=== PATIENT | male | born 1935 | race Caucasian/White ===

== ENCOUNTER 2016-10-09 08:29 | Inpatient (IN) | payer OTHER, MEDICARE ==
[~2016-10-09] VITALS: Ht 154.9 cm; Wt 79.4 kg
--- NOTE | 2016-10-09 08:33 | ED UPPER/LOWER EXTREMITY COMPL ---
History of Present Illness General Chief Complaint: Lower Extremity Injury Stated Complaint: BIBA LEFT LEG PAIN Source: patient, family Exam Limitations: no limitations Vital Signs & Intake/Output Vital Signs & Intake/Output Vital Signs Date Time Temp Pulse Resp B/P B/P Pulse O2 O2 Flow FiO2 Mean Ox Delivery Rate 10/10 0617 98.2 97 20 130/78 94 Room Air 10/09 2202 98.5 89 20 132/64 100 Room Air 10/09 1430 98.3 80 20 152/96 98 10/09 1230 97.8 80 20 140/80 96 10/09 1149 90 20 148/81 98 Room Air ED Intake and Output 10/10 0000 10/09 1200 Intake Total 420 0 Output Total 900 Balance -480 0 Intake, Oral 420 0 Number 0 Bowel Movements Output, Urine 900 Patient 175 lb 175 lb Weight Weight Reported by Patient Reported by Patient Measurement Method Allergies Coded Allergies: MDX - Latex (LATEX) (ITCHY AND HIVES 08/12/13) Reconcile Medications Calcium Carb/Vitamin D3/Vit K1 (Calcium + D Soft Chewable Tab) 500 MG CALCIUM-1, 000 UNIT-40 MCG TAB.CHEW (Unknown Dose) PO DAILY VITAMIN SUPPORT (Reported) Cephalexin 250 MG CAPSULE 1 CAP PO DAILY UTI PROPHYLACTIC (Reported) Dipyridamole W/ Aspirin (Aggrenox 25 MG-200 MG Capsule) 25 MG-200 MG CPMP.12HR 1 CAP PO BID BLOOD THINNER (Reported) Multiple Vitamin (Multivitamins) 1 EACH TABLET 1 TAB PO DAILY VITAMIN SUPPORT (Reported) Simvastatin (Simvastatin*) 40 MG TABLET 1 TAB PO QPM HEART HEALTH (Reported) Triage Nurses Notes Reviewed? yes Onset: Abrupt Duration: day(s): (1) Timing: multiple episodes today Severity: moderate Pain/Injury Location: Left: Leg, Knee. Method of Injury: fall Modifying Factors: Worsens With: movement. Associated Symptoms: swelling HPI: This is a very kailey 78-year-old gentleman from home who arrives by ambulance for chief complaint of left knee pain, left leg swelling and weakness. He slid off the toilet yesterday while attempting to get up and landed on the ground. He was sitting there for half an hour and waited for family to come pick him up. They were able to lift him up and put him back in the wheelchair. He has a history of Guillain-Monroe in 1963. 4 years ago he fell down and had a femur fracture. Since that time he has been relatively ultrasound. He is able to hoist himself between the wheelchair and a scooter at home. Today as well he was unable to get himself off the toilet and needed a lift. He complains of bilateral leg swelling. Left leg is more swollen than yesterday according to the niece at bedside. He denies any pain. Historically the patient does not feel pain even when he sustained his femur fracture. He lives at home with his 80-year-old who takes care of him. She was unable to help him up yesterday or today. Past History Travel History Traveled to [place] past 21 day No Medical History Any Pertinent Medical History? see below for history Neurological: GBS Musculoskeletal: fracture History of MRSA: No History of VRE: No History of CDIFF: No Pneumonia Vaccine: 01/12/04 Surgical History Surgical History: LEFT FEMUR FREDERICK Psychosocial History Who do you live with Spouse Services at Home Nursing What is your primary language Malagasy Family History Hx Contributory? No Review of Systems Review of Systems Constitutional: Reports: malaise. Denies: chills, fever. EENTM: Reports: no symptoms. Respiratory: Denies: cough, short of breath. Cardiovascular: Reports: peripheral edema. Denies: chest pain, palpitations. Gastrointestinal/Abdominal: Reports: no symptoms. Genitourinary: Reports: no symptoms. Musculoskeletal: Reports: joint pain, joint swelling. Skin: Reports: no symptoms. Neurological/Psychological: Reports: no symptoms. Hematologic/Endocrine: Denies: bruising, bleeding, polyuria, polydipsia. Immunological: Denies: splenectomy. All Other Systems: Reviewed and Negative Physical Exam Physical Exam General Appearance: well developed/nourished, mild distress Head: atraumatic Eyes: Bilateral: PERRL, EOMI. Ears, Nose, Throat: normal pharynx, normal ENT inspection, hearing grossly normal Neck: normal inspection, supple Cardiovascular/Respiratory: regular rate/rhythm Peripheral Pulses: 2+ radial (R), 2+ radial (L) Gastrointestinal: SOFT NONTEN Back: normal inspection Leg Left: swelling, tenderness Leg Right: normal range of motion, swelling Hip Left: normal range of motion, swelling Hip Right: normal range of motion, swelling Knee Left: swelling, tenderness, limited range of motion Knee Right: normal range of motion, swelling Foot Left: swelling Foot Right: swelling Neurologic/Tendon: normal sensation Skin: intact, normal color, warm/dry Lymphatic: no anterior cervical manuel Diagram Legs Front/Back 1) TENDER, SWOLLEN Progress Differential Diagnosis: dislocation, fracture Plan of Care: Orders Procedure Date/time Status PT Evaluate & Treat 10/10 0600 Active CBC WITHOUT DIFFERENTIAL 10/10 06 Complete Therapeutic Exercise 10/10 UNK Complete PT EVAL LOW COMPLEX 20 MIN 10/10 UNK Complete Nursing Misc 10/10 UNK Active PHARMACY COMMUNICATION FORM 10/10 UNK Active MISSING MEDICATION FORM 10/10 UNK Active Heart Healthy Diet 10/09 L Active Pathway - chart 10/09 1437 Active House Staff 10/09 1437 Active Turn and Reposition 10/09 1314 Active Skin Integrity Protocol 10/09 1314 Active Vital Signs 10/09 1225 Active Teach/Educate 10/09 1225 Active Pain Treatment and Response 10/09 1225 Active Nutritional Intake, Monitor 10/09 1225 Active Isolation 10/09 1225 Active Intake & Output 10/09 1225 Active Patient Care Conference 10/09 1225 Active Activity/Ambulation 10/09 1225 Complete Change service to 10/09 1155 Active Patient Data 10/09 1136 Active ED Holding Orders 10/09 1055 Active Admit to inpatient 10/09 1055 Active Vital Signs 10/09 1055 Active Code Status 10/09 1055 Active EKG 10/09 1048 Active Durable Medical Equipment 10/09 1026 Active Intake & Output 10/09 0935 Active Straight Cath 10/09 UNK Active Current Medications Sig/Yeimi Start time Last Medication Dose Stop Time Status Admin Cephalexin 250 MG DAILY 10/10 1000 AC (Keflex) 10/11 0959 Multivitamins 1 TAB DAILY 10/10 1000 AC 10/10 Therapeutic 0959 (Theragran-M Vitamins Tabs) Calcium/Vitamin D 1 TAB BID 10/09 2200 AC 10/10 (Caltrate 600 + D) 0959 Dipyridamole/Aspirin 1 CAP BID 10/09 2200 AC 10/10 (Aggrenox) 0959 Atorvastatin Calcium 20 MG 1700 10/09 1700 AC 10/09 (Lipitor) 1627 Acetaminophen 650 MG Q6P PRN 10/09 1445 AC (Tylenol) Heparin Sodium 5,000 UNIT Q8 10/09 1434 AC 10/10 (Porcine) 0543 Morphine Sulfate 4 MG Q4P PRN 10/09 1430 AC (Morphine) Laboratory Tests 10/10/16 0625: CBC w Diff NO MAN DIFF REQ, RBC 3.98 L, MCV 97.6 H, MCH 32.6 H, RDW 14.1, MPV 9.2, Gran % 73.1, Lymphocytes % 14.2 L, Monocytes % 10.8 H, Eosinophils % 1.6, Basophils % 0.3, Absolute Granulocytes 6.0, Absolute Lymphocytes 1.2, Absolute Monocytes 0.9 H, Absolute Eosinophils 0.1, Absolute Basophils 0, PUBS MCHC 33.4 10/09/16 1545: Urine Color YEL, Urine Clarity CLEAR, Urine pH 7.0, Ur Specific Hubbell 1.010, Urine Protein NEG, Urine Ketones NEG, Urine Nitrite NEG, Urine Bilirubin NEG, Urine Urobilinogen 0.2, Ur Leukocyte Esterase TRACE H, Ur Microscopic SEDIMENT EXAMINED, Urine RBC RARE, Urine WBC 1-3 H, Urine Bacteria RARE H, Urine Hemoglobin TRACE-LYSED H, Urine Glucose 250 H 10/09/16 1037: Anion Gap 10, Estimated GFR > 60, BUN/Creatinine Ratio 19.0, Glucose 126 H, Calcium 9.5, Total Bilirubin 1.3, AST 24, ALT 38, Alkaline Phosphatase 83, Total Protein 6.1 L, Albumin 3.6, Globulin 2.5, Albumin/Globulin Ratio 1.4, CBC w Diff NO MAN DIFF REQ, RBC 4.03 L, MCV 96.7 H, MCH 32.5 H, RDW 13.7, MPV 8.6, Gran % 85.7 H, Lymphocytes % 6.1 L, Monocytes % 7.7, Eosinophils % 0.3, Basophils % 0.2, Absolute Granulocytes 8.6 H, Absolute Lymphocytes 0.6 L, Absolute Monocytes 0.8 H, Absolute Eosinophils 0, Absolute Basophils 0, PUBS MCHC 33.7 10:[address] SHAHRIAR MACHADO (WINDER) PAGED PER FAMILY REQUEST. XRAY SHOWS TIBIA/FIBULA INTRAARTICULAR FRACTURE. D/W MADDIE FROM HIS OFFICE - REFERRED TO PARTNER. DR LEXIS LEACH (PARTNER OF DR BESS FROM [facility]) -[phone] ( [facility]) D/W RICHO - KNEE IMMOBILIZER X 4-6 WEEKS, CAN SEE IN OFFICE. D/W PARMINDER FROM CASE MANAGEMENT, PATIENT REQUIRES FULL ADMISSION HE IS UNABLE TO BEAR WEIGHT AND USES A WALKER WITH GREAT DIFFICULTY AT BASELINE. HE WILL REQUIRE REHAB. ([place]) Diagnostic Imaging: Viewed by Me: Radiology Read, Ultrasound. Discussed w/RAD: Radiology Read, Ultrasound. Radiology Impression: PATIENT: TOMÁS MEIER PRESENT AGE: 81 PATIENT ACCOUNT NO: [id number] : 33 LOCATION: ER ORDERING PHYSICIAN: PAPA BLANCHARD MD SERVICE DATE: 10/09/16 EXAM TYPE: RAD - XRY -AP PELVIS EXAMINATION: XR PELVIS CLINICAL INFORMATION: Left leg pain after a fall COMPARISON: None TECHNIQUE: AP view of the pelvis. FINDINGS: Moderate right and mild left hip joint space narrowing. Partial visualization of a left femoral intramedullary nail with obliquely oriented screws traversing the left femoral neck. There is heterotopic ossification proximal to the greater trochanter. No acute fracture or dislocation. IMPRESSION: No acute fracture or dislocation. DICTATED BY: MERCY MO MD DATE/TIME DICTATED:10/09/16926 FLAME ANNEALING MACHINE SETTER:DANNY DATE/TIME TRANSCRIBED:10/09/16926 CONFIDENTIAL, DO NOT COPY WITHOUT APPROPRIATE AUTHORIZATION. <Electronically signed in Other Vendor System> SIGNED BY: MERCY MO MD 10/09/16930, PATIENT: TOMÁS MEIER PRESENT AGE: 81 PATIENT ACCOUNT NO: [id number] : 33 LOCATION: ER ORDERING PHYSICIAN: PAPA BLANCHARD MD SERVICE DATE: 10/09/16 EXAM TYPE: RAD - XRY-FEMUR, LEFT 2 VIEWS; XRY-KNEE COMPLETE LEFT EXAMINATION: XR FEMUR, LEFT XR KNEE, LEFT CLINICAL INFORMATION: Fall COMPARISON: None TECHNIQUE: AP and lateral views of the left femur were obtained. 4 views of the left knee. FINDINGS: There is an intramedullary nail traversing a partially healed fracture of the midfemoral diaphysis with callus formation. The fracture line remains visible. There is diffuse osteopenia. There is a minimally displaced, complex fracture of the proximal tibia with a fracture line extending between the tibial spines, and oblique, longitudinal fracture lines extending beyond the metadiaphysis. There is also a minimally displaced fracture of the fibular head/neck junction. Small joint effusion. IMPRESSION: Slightly complex and minimally displaced fractures of the left proximal tibia and fibula. The fractures are intra-articular. There is an incompletely healed femoral diaphysis fracture with no acute femur fracture demonstrated. DICTATED BY: MERCY MO MD DATE/TIME DICTATED:10/09/16927 FLAME ANNEALING MACHINE SETTER: DANNY DATE/TIME TRANSCRIBED:10/09/16927 CONFIDENTIAL, DO NOT COPY WITHOUT APPROPRIATE AUTHORIZATION. <Electronically signed in Other Vendor System> SIGNED BY: MERCY MO MD 10/09/1638 Initial ED EKG: RBBB Prior EKG: unchanged Departure Departure Time of Disposition: 1053 Disposition: STILL A PATIENT Condition: Stable Clinical Impression Primary Impression: Tibia fracture Secondary Impressions: Fibula fracture Referrals: TYLOR VEGA MD (PCP/Family) Departure Forms: Customer Survey General Discharge Information Admission Note Spoke With: NAPOLEON LOU MD Documentation of Exam: Documentation of any treatments & extenuating circumstances including Concerns Regarding Discharge (functional status, medication knowledge or non-compliance, living conditions, etc.) that warrant an admission rather than observation: [PT ASSESSMENT, KNEE IMMOBILIZER, PAIN MANAGEMENT, OT CONSULT, PATIENT UNABLE TO BEAR WEIGHT SECONDARY TO FRACTURE AND HAS A VERY POOR FUNCTIONAL BASELINE STATUS , WILL REQUIRE SHORT TERM REHAB] Procedures Splinting Location: LEFT KNEE IMMOBILIZER PLACED Pre-Made Type: knee imobilizer Splint Applied By: splint applied by other ED Attending Observation Initial Observation Note: I have seen and personally examined TOMÁS MEIER on 10/09/16 at 1009. I agree with the current emergency department documentation. The disposition (admission or discharge) is uncertain at this time, he needs a period of observation for the following reason(s): The ED Nurse caring for this patient has been personally informed as to what the patient is being observed for.
--- NOTE | 2016-10-09 09:31 | RADIOLOGY REPORT ---
EXAMINATION: XR PELVIS CLINICAL INFORMATION: Left leg pain after a fall COMPARISON: None TECHNIQUE: AP view of the pelvis. FINDINGS: Moderate right and mild left hip joint space narrowing. Partial visualization of a left femoral intramedullary nail with obliquely oriented screws traversing the left femoral neck. There is heterotopic ossification proximal to the greater trochanter. No acute fracture or dislocation. IMPRESSION: No acute fracture or dislocation.
--- NOTE | 2016-10-09 09:35 | RADIOLOGY REPORT ---
EXAMINATION: XR ANKLE, LEFT CLINICAL INFORMATION: Fall with pain COMPARISON: None TECHNIQUE: AP and lateral views of the left ankle. FINDINGS: Diffuse osteopenia. No acute fracture or dislocation is demonstrated. Lateral soft tissue swelling. IMPRESSION: Osteopenia with no fracture demonstrated. Alignment appears maintained.
--- NOTE | 2016-10-09 09:38 | RADIOLOGY REPORT ---
EXAMINATION: XR FEMUR, LEFT XR KNEE, LEFT CLINICAL INFORMATION: Fall COMPARISON: None TECHNIQUE: AP and lateral views of the left femur were obtained. 4 views of the left knee. FINDINGS: There is an intramedullary nail traversing a partially healed fracture of the midfemoral diaphysis with callus formation. The fracture line remains visible. There is diffuse osteopenia. There is a minimally displaced, complex fracture of the proximal tibia with a fracture line extending between the tibial spines, and oblique, longitudinal fracture lines extending beyond the metadiaphysis. There is also a minimally displaced fracture of the fibular head/neck junction. Small joint effusion. IMPRESSION: Slightly complex and minimally displaced fractures of the left proximal tibia and fibula. The fractures are intra-articular. There is an incompletely healed femoral diaphysis fracture with no acute femur fracture demonstrated.
--- NOTE | 2016-10-09 10:07 | ULTRASOUND REPORT ---
EXAMINATION: US TRIPLEX OF LOWER EXTREMITIES, BILATERAL CLINICAL INFORMATION: Bilateral lower extremity swelling. COMPARISON: None TECHNIQUE: Color-flow triplex imaging with spectral analysis and compression Doppler were performed on the lower extremities. FINDINGS: Respiratory variation, normal compression and augmented flow are noted throughout the lower extremities. The visualized common femoral vein, superficial femoral vein, profunda femoral vein, popliteal vein and midcalf peroneal and posterior tibial venous segments show no evidence of deep venous thrombosis. There is no Rowan's cyst. IMPRESSION: Normal triplex scan without evidence of deep venous thrombosis involving the lower extremities.
[2016-10-09 10:44] LABS: ABSOLUTE BASOPHIL COUNT 0 /CUMM (0.0-0.2); ABSOLUTE EOSINOPHIL COUNT 0 /CUMM (0.0-0.7); ABSOLUTE GRANULOCYTE CT 8.6 /CUMM (1.4-6.5); ABSOLUTE LYMPH COUNT 0.6 /CUMM (1.2-3.4); ABSOLUTE MONOCYTE COUNT 0.8 /CUMM (0.10-0.60); BASOPHIL % 0.2 % (0.0-2.0); EOSINOPHIL % 0.3 % (0-5); HEMATOCRIT 38.9 % (42-52); MEAN CORPUSCULAR HGB 32.5 PG (27.0-31.0); MEAN CORPUSCULAR HGB CONC 33.7 G/DL (33.0-37.0); MEAN CORPUSCULAR VOLUME 96.7 FL (80.0-94.0); MEAN PLATELET VOLUME 8.6 FL (7.4-10.4); PLATELET COUNT 195 /CUMM (130-400); RBC DISTRIBUTION WIDTH 13.7 % (11.5-14.5); RED BLOOD CELL CT 4.03 /CUMM (4.70-6.10); WHITE BLOOD CELL COUNT 10.1 /CUMM (4.8-10.8)
[2016-10-09 10:58] LABS: GRANULOCYTE % 85.7 % (42.2-75.2)
--- NOTE | 2016-10-09 11:22 | History & Physical ---
CRISTINA MARIE,[facility] 10/09/16 1121: General Information and HPI MD Statement: I have seen and personally examined TOMÁS MEIER and documented this H&P. The patient is a 81 year old M who presented with a patient stated chief complaint of [left knee pain]. 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 The patient lives with his 80-year old at home. At baseline he uses a motorized scooter or wheelchair for ambulation due to residual effects of GBS, and he can only take a few steps with a walker at best. Yesterday evening around 8 pm, he slipped and fell in his bathroom as he was trying to transfer from the comode to his scooter. He slipped and fell on his backside twisting his knee and landing on his left foot. He denied chest pain, shortness of breath, lightheadedness or palpitations prior to this episode. He stated that he felt no pain in his knee but did note some swelling/tight feeling there. He was unable to get up on his own, and was on the floor for about 30 minutes and then his found him and lifted him up with the help of a friend. On awakening this morning, he noted some slight pain in the knee -about 2/10 intensity. His knee also appeared more swollen. He the noticed that he could not get up from the comode this morning and when his could not help him alone today, shecalled the EMS who brought him to the ER for evaluation. Of note, the patient has had a left femur fracture about 4 years ago and also felt minimal pain at that time. Allergies/Medications Allergies: Coded Allergies: MDX - Latex (LATEX) (ITCHY AND HIVES 08/12/13) Home Med list Calcium Carb/Vitamin D3/Vit K1 (Calcium + D Soft Chewable Tab) 500 MG CALCIUM-1, 000 UNIT-40 MCG TAB.CHEW (Unknown Dose) PO DAILY VITAMIN SUPPORT (Reported) Cephalexin 250 MG CAPSULE 1 CAP PO DAILY UTI PROPHYLACTIC (Reported) Dipyridamole W/ Aspirin (Aggrenox 25 MG-200 MG Capsule) 25 MG-200 MG CPMP.12HR 1 CAP PO BID BLOOD THINNER (Reported) Multiple Vitamin (Multivitamins) 1 EACH TABLET 1 TAB PO DAILY VITAMIN SUPPORT (Reported) Simvastatin (Simvastatin*) 40 MG TABLET 1 TAB PO QPM HEART HEALTH (Reported) Past History Travel History Traveled to [place] past 21 day No Medical History Neurological: GBS Cardiovascular: hyperlipidemia, myocardial infarction Musculoskeletal: fracture History of MRSA: No History of VRE: No History of CDIFF: No Surgical History Surgical History: LEFT FEMUR FREDERICK Past Family/Social History Family History Relations & Conditions if any FATHER FH: CHF (congestive heart failure) Psychosocial History Where do you live? Home Who Do You Live With? spouse Services at Home: Nursing Smoking Status: Former Smoker ETOH Use: occasional use Review of Systems Review of Systems Constitutional: Reports: weakness. Denies: chills, fever, malaise. EENTM: Denies: blurred vision, nasal congestion, throat pain. Cardiovascular: Denies: chest pain, palpitations, syncope. Respiratory: Denies: cough, short of breath, wheezing. GI: Denies: abdominal pain, diarrhea, nausea, vomiting. Genitourinary: Denies: dysuria. Exam & Diagnostic Data Last 24 Hrs of Vital Signs/I&O Vital Signs Date Time Temp Pulse Resp B/P B/P Pulse O2 O2 Flow FiO2 Mean Ox Delivery Rate 10/09 1430 98.3 80 20 152/96 98 10/09 1230 97.8 80 20 140/80 96 10/09 1149 90 20 148/81 98 Room Air 10/09 0936 Room Air Room Air 10/09 0835 96.9 89 15 161/74 98 Room Air Room Air Intake & Output 10/09 1600 10/09 0800 10/09 0000 Intake Total 0 Output Total Balance 0 Intake, Oral 0 Patient 175 lb Weight Weight Reported by Patient Measurement Method Physical Exam General Appearance Alert, Oriented X3, Cooperative, No Acute Distress Skin No Rashes Skin Temp/Moisture Exam: Warm/Dry Sepsis Skin Exam (color): Normal for Ethnicity HEENT Atraumatic, PERRLA, EOMI, Mucous Membr. moist/pink Neck Supple, No JVD, No thryomegaly, +2 Carotid Pulse wo Bruit Lymphatic Cervical nl Cardiovascular Regular Rate, Normal S1, Normal S2, No Murmurs Lungs Clear to Auscultation, Normal Air Movement Abdomen Normal Bowel Sounds, Soft, No Tenderness, No Hepatospenomegaly, No Masses Neurological Normal Speech, Reduced tone in lower limbs bilaterally, Strength 2/ 5 in both lower limbs Extremities No Edema, Normal Pulses Vascular Normal Pulses, Pulses Symmetrical Last 24 Hrs of Labs/Anthony: Laboratory Tests 10/09/16 1037: Anion Gap 10, Estimated GFR > 60, BUN/Creatinine Ratio 19.0, Glucose 126 H, Calcium 9.5, Total Bilirubin 1.3, AST 24, ALT 38, Alkaline Phosphatase 83, Total Protein 6.1 L, Albumin 3.6, Globulin 2.5, Albumin/Globulin Ratio 1.4, CBC w Diff NO MAN DIFF REQ, RBC 4.03 L, MCV 96.7 H, MCH 32.5 H, RDW 13.7, MPV 8.6, Gran % 85.7 H, Lymphocytes % 6.1 L, Monocytes % 7.7, Eosinophils % 0.3, Basophils % 0.2, Absolute Granulocytes 8.6 H, Absolute Lymphocytes 0.6 L, Absolute Monocytes 0.8 H, Absolute Eosinophils 0, Absolute Basophils 0, PUBS MCHC 33.7 Diagnostic Data Other Results X-ray left knee IMPRESSION: Slightly complex and minimally displaced fractures of the left proximal tibia and fibula. The fractures are intra-articular. There is an incompletely healed femoral diaphysis fracture with no acute femur fracture demonstrated. 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 The patient lives with his 80-year old at home. At baseline he uses a motorized scooter or wheelchair for ambulation due to residual effects of GBS, and he can only take a few steps with a walker at best. He presents after a mechanical fall and resultant left leg weakness and swelling. Doppler ultrasound showed no DVT but left knee X-rays showed minimally displaced intraarticular proximal left tibia and fibular fractures. He is planned for conservative management by orthopedics. Problem list 1. Left intraarticular proximal Tibilo-fibular fracture 2. 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 Coronary Artery Disease 4. History of recurrent UTIs on prophylactic cephalexin and on intermittent self catheterization Plan -Admit to [facility] -Orthopedic surgery consultation -Po tylenol 650 mg Q6 hrs prn for mild to moderate pain -IV morphine 4 mg Q 6 hrs PRN for severe pain -Physical therapy consultation for discharge recommendations -Patient will likely need short term rehab placement -Continue home medications cephalexin, aggrenox -DVT ppx SC heparin 5000 units Q 8 hrs -Patient is full code As Ranked By This Provider Problem List: 1. Tibia fracture 2. Fibula fracture Core Measures/Miscellaneous Acute Coronary Syndrome ACS Diagnosis: No Cerebrovascular Accident CVA/TIA Diagnosis: No Congestive Heart Failure CHF Diagnosis: No Venous Thromboembolism VTE Risk Factors: Acute medical illness, Age > 40 [facility] d/t: No contraindications No VTE Pharm Prophylaxis d/t: No contraindications VTE Diagnosis: No VTE Type: NONE VTE Confirmed by (Test): NONE Severe Sepsis Severe Sepsis Present: No Septic Shock Septic Shock Present: No Miscellaneous Documentation Attending Case Discussed With: RAQUEL COOPER MD Primary Care Physician: TYLOR VEGA MD Patient sees these Specialists None Level of Patient Care: General Medicine RAQUEL COOPER MD 10/09/16 1721: Attending MD Review Statement Attending Statement Attending MD Statement: examined this patient, discuss w/resident/PA/INFORMATION TECHNOLOGY DIRECTOR, agreed w/resident/PA/INFORMATION TECHNOLOGY DIRECTOR, reviewed EMR data (avail) Attending Assessment/Plan: Agree with residnet assessment and plan. Patient has no pain at this time. Will follyolanda orthopedic and physical therapy recommendations. Continue current medications. DVT PPx
[2016-10-09] MEDS ORDERED: CEPHALEXIN250 M2 PO (12:13)
[2016-10-09] MEDS ORDERED: SIMVASTATIN40 M1 PO (12:13)
[2016-10-09] MEDS ORDERED: AGGRENOX 25 MG1 EACH PO (12:13)
[2016-10-09 12:30] VITALS: BP 140/80
[2016-10-09] MEDS ORDERED: MULTIVITAMINS1 EAC9 PO (12:35)
[2016-10-09] MEDS ORDERED: CALCIUM + D SO1 EACH PO (12:37)
[2016-10-09 14:30] VITALS: BP 152/96
--- NOTE | 2016-10-09 17:21 | Admission Certification ---
Admission Certification Certification Statement - As attending physician, I certify that at the time of - admission, based on clinical presentation, severity of - symptoms, need for further diagnostic testing and - therapeutic interventions, and risk of adverse outcomes - without in-hospital treatment, in my clinical assessment, - this patient requires an acute hospital stay for a minimum - of two nights or longer. I have also considered psychsocial - factors such as support system, advanced age, financial - issues, cognitive issues, and failed out-patient treatments, - past re-admission history, safety of patient, and lack of - compliance as applicable. Specific rationale supporting this admission is: Fall with multiple tibial fractures requiring immobilization
[2016-10-09 22:02] VITALS: BP 132/64
[2016-10-10 06:17] VITALS: BP 130/78
--- NOTE | 2016-10-10 07:27 | PN- Housestaff ---
CRISTINA MARIE,[facility] 10/10/16 0726: Subjective Follow-up For: -Fall with left tibilo-fibular fracture Complaints: no complaints Subjective: Patient has no complaints this morning. He has no pain in his leg (Patient does not feel pain in his lower limbs due to Guillaine [place] sydrome). He is pleasant today and wants to eat a regular diet. Review of Systems Constitutional: Denies: chills, fever. EENTM: Denies: blurred vision, nasal congestion. Cardiovascular: Denies: chest pain, palpitations, syncope. Respiratory: Denies: cough, short of breath, wheezing. Gastrointestinal: Denies: abdominal pain, bloating, constipation. Genitourinary: Denies: dysuria, pain. Objective Last 24 Hrs of Vital Signs/I&O Vital Signs Date Time Temp Pulse Resp B/P B/P Pulse O2 O2 Flow FiO2 Mean Ox Delivery Rate 10/10 0617 98.2 97 20 130/78 94 Room Air 10/09 2202 98.5 89 20 132/64 100 Room Air 10/09 1430 98.3 80 20 152/96 98 10/09 1230 97.8 80 20 140/80 96 10/09 1149 90 20 148/81 98 Room Air Intake & Output 10/10 1600 10/10 0800 10/10 0000 Intake Total 180 180 Output Total 700 900 Balance -520 -720 Intake, Oral 180 180 Number 0 Bowel Movements Output, Urine 700 900 Physical Exam General Appearance: Alert, Oriented X3, Cooperative, No Acute Distress, Mild Distress Skin: No Rashes Skin Temp/Moisture Exam: Warm/Dry Sepsis Skin Exam (color): Normal for Ethnicity HEENT: Atraumatic, PERRLA, EOMI, Mucous Membr. moist/pink Neck: Supple, No JVD, No thryomegaly, +2 Carotid Pulse wo Bruit Lymphatic: Cervical nl Cardiovascular: Regular Rate, Normal S1, Normal S2, No Murmurs Lungs: Clear to Auscultation, Normal Air Movement Abdomen: Normal Bowel Sounds, Soft, No Tenderness, No Hepatospenomegaly, No Masses Neurological: Normal Speech, Reduced tone and power grade 1/5 in both lower limbs Extremities: Normal Pulses, Left knee/amrquez in straps, No edema Current Medications: Current Medications Sig/Yeimi Start time Last Medication Dose Route Stop Time Status Admin Acetaminophen 650 MG Q6P PRN 10/09 1445 AC PO Atorvastatin Calcium 20 MG 1700 10/09 1700 AC 10/09 PO 1627 Calcium/Vitamin D 1 TAB BID 10/09 2200 AC 10/10 PO 0959 Cephalexin 250 MG DAILY 10/10 1000 AC PO 10/11 0959 Dipyridamole/Aspirin 1 CAP BID 10/09 2200 AC 10/10 PO 0959 Heparin Sodium 5,000 UNIT Q8 10/09 1434 AC 10/10 (Porcine) SC 0543 Morphine Sulfate 4 MG Q4P PRN 10/09 1430 AC IV Multivitamins 1 TAB DAILY 10/10 1000 AC 10/10 Therapeutic PO 0959 Last 24 Hrs of Lab/Anthony Results Last 24 Hrs of Labs/Mics: Laboratory Tests 10/10/16 0625: CBC w Diff NO MAN DIFF REQ, RBC 3.98 L, MCV 97.6 H, MCH 32.6 H, RDW 14.1, MPV 9.2, Gran % 73.1, Lymphocytes % 14.2 L, Monocytes % 10.8 H, Eosinophils % 1.6, Basophils % 0.3, Absolute Granulocytes 6.0, Absolute Lymphocytes 1.2, Absolute Monocytes 0.9 H, Absolute Eosinophils 0.1, Absolute Basophils 0, PUBS MCHC 33.4 10/09/16 1545: Urine Color YEL, Urine Clarity CLEAR, Urine pH 7.0, Ur Specific [place] 1.010, Urine Protein NEG, Urine Ketones NEG, Urine Nitrite NEG, Urine Bilirubin NEG, Urine Urobilinogen 0.2, Ur Leukocyte Esterase TRACE H, Ur Microscopic SEDIMENT EXAMINED, Urine RBC RARE, Urine WBC 1-3 H, Urine Bacteria RARE H, Urine Hemoglobin TRACE-LYSED H, Urine Glucose 250 H Assessment/Plan Assessment: Patient is an 81-year-old man with 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 The patient lives with his 80-year old at home. At baseline he uses a motorized scooter or wheelchair for ambulation due to residual effects of GBS, and he can only take a few steps with a walker at best. He presents after a mechanical fall and resultant left leg weakness and swelling. Doppler ultrasound showed no DVT but left knee X-rays showed minimally displaced intraarticular proximal left tibia and fibular fractures. He is planned for conservative management by orthopedics. Problem list 1. Left intraarticular proximal Tibilo-fibular fracture 2. 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 Coronary Artery Disease 4. History of recurrent UTIs on prophylactic cephalexin and on intermittent self catheterization Plan -Continue conservative management -Awaiting orthopedic surgery review -Po tylenol 650 mg Q6 hrs prn for mild to moderate pain -IV morphine 4 mg Q 6 hrs PRN for severe pain -Physical therapy consultation for discharge recommendations -Patient will likely need short term rehab placement -Continue home medications cephalexin, aggrenox -DVT ppx SC heparin 5000 units Q 8 hrs -Regular diet as per patient request -Patient is full code Problem List: 1. Tibia fracture 2. Fibula fracture Pain Ratin Pain Location: None Pain Goal: Remain pain free Pain Plan: Tylenol as needed Tomorrow's Labs & Rationales: Not needed RAQUEL COOPER MD 10/10/16 1004: Attending MD Review Statement Attending Statement Attending MD Statement: examined this patient, discuss w/resident/PA/CLINICAL DATA ABSTRACTOR, agreed w/resident/PA/CLINICAL DATA ABSTRACTOR, reviewed EMR data (avail) Attending Assessment/Plan: [facility]. Patient has no pain at this time. [facility] orthopedic and physical therapy recommendations. Continue current medications. DVT PPx
[2016-10-10 07:57] LABS: ABSOLUTE BASOPHIL COUNT 0 /CUMM (0.0-0.2); ABSOLUTE EOSINOPHIL COUNT 0.1 /CUMM (0.0-0.7); ABSOLUTE LYMPH COUNT 1.2 /CUMM (1.2-3.4); ABSOLUTE MONOCYTE COUNT 0.9 /CUMM (0.10-0.60); BASOPHIL % 0.3 % (0.0-2.0); EOSINOPHIL % 1.6 % (0-5); GRANULOCYTE % 73.1 % (42.2-75.2); HEMATOCRIT 38.9 % (42-52); MEAN CORPUSCULAR HGB 32.6 PG (27.0-31.0); MEAN CORPUSCULAR HGB CONC 33.4 G/DL (33.0-37.0); MEAN CORPUSCULAR VOLUME 97.6 FL (80.0-94.0); MEAN PLATELET VOLUME 9.2 FL (7.4-10.4); PLATELET COUNT 189 /CUMM (130-400); RBC DISTRIBUTION WIDTH 14.1 % (11.5-14.5); RED BLOOD CELL CT 3.98 /CUMM (4.70-6.10); WHITE BLOOD CELL COUNT 8.2 /CUMM (4.8-10.8)
[2016-10-10 14:40] VITALS: BP 125/80
--- NOTE | 2016-10-10 14:46 | Cons- Orthopedic ---
General Information and HPI Consulting Request Date of Consult: 10/10/16 Requested By: RC Reason for Consult: Left leg pain Source of Information: patient Exam Limitations: no limitations History of Present Illness: Jovany is an 81-year-old male who had a fall off of his toilet 2 days ago. He does have weakness in both legs and is a minimal ambulator. The next morning after falling was having difficulty so his brought him to the emergency room a [facility]. X-rays were done which revealed a nondisplaced fracture of the proximal tibia. On questioning today the patient has minimal pain and leg. He is comfortably resting. He has no neurologic symptoms in the left lower extremity. Allergies/Medications Allergies: Coded Allergies: MDX - Latex (LATEX) (ITCHY AND HIVES 08/12/13) Home Med List: Calcium Carb/Vitamin D3/Vit K1 (Calcium + D Soft Chewable Tab) 500 MG CALCIUM-1, 000 UNIT-40 MCG TAB.CHEW (Unknown Dose) PO DAILY VITAMIN SUPPORT (Reported) Cephalexin 250 MG CAPSULE 1 CAP PO DAILY UTI PROPHYLACTIC (Reported) Dipyridamole W/ Aspirin (Aggrenox 25 MG-200 MG Capsule) 25 MG-200 MG CPMP.12HR 1 CAP PO BID BLOOD THINNER (Reported) Multiple Vitamin (Multivitamins) 1 EACH TABLET 1 TAB PO DAILY VITAMIN SUPPORT (Reported) Simvastatin (Simvastatin*) 40 MG TABLET 1 TAB PO QPM HEART HEALTH (Reported) Current Medications: Current Medications Sig/Yeimi Start time Last Medication Dose Route Stop Time Status Admin Acetaminophen 650 MG Q6P PRN 10/09 1445 AC PO Atorvastatin Calcium 20 MG 1700 10/09 1700 AC 10/09 PO 1627 Calcium/Vitamin D 1 TAB BID 10/09 2200 AC 10/10 PO 0959 Cephalexin 250 MG 2200 10/10 2200 AC PO 10/11 2159 Cephalexin 250 MG DAILY 10/10 1000 DC PO 10/11 0959 Dipyridamole/Aspirin 1 CAP BID 10/09 2200 AC 10/10 PO 0959 Heparin Sodium 5,000 UNIT Q8 10/09 1434 AC 10/10 (Porcine) SC 1345 Lactobacillus 1 CAP 11:00 AM 10/10 1345 AC Acidophilus PO Morphine Sulfate 4 MG Q4P PRN 10/09 1430 AC IV Multivitamins 1 TAB DAILY 10/10 1000 AC 10/10 Therapeutic PO 0959 Past History Medical History Blood Transfusion Hx: No Neurological: GBS EENT: NONE Cardiovascular: hyperlipidemia, myocardial infarction Respiratory: NONE Gastrointestinal: constipation Hepatic: NONE Renal: neurogenic bladder, urinary incontinence, CHRONIC UTI Musculoskeletal: fracture Psychiatric: NONE Endocrine: NONE Blood Disorders: NONE Cancer(s): NONE CLINICAL SAFETY SPECIALIST/Reproductive: NONE Surgical History Pertinent Surgical History: LEFT FEMUR FREDERICK Family History Relations & Conditions If Any: FATHER FH: CHF (congestive heart failure) Psychosocial History Where Do You Live? Home Who Do You Live With? spouse Services at Home: Nursing Smoking Status: Former Smoker ETOH Use: occasional use Exam & Diagnostic Data Vital Signs and I&O Vital Signs Date Time Temp Pulse Resp B/P B/P Pulse O2 O2 Flow FiO2 Mean Ox Delivery Rate 10/10 1440 98.8 88 20 125/80 96 10/10 0617 98.2 97 20 130/78 94 Room Air 10/09 2202 98.5 89 20 132/64 100 Room Air Intake & Output 10/10 1600 10/10 0800 10/10 0000 10/09 1600 10/09 0800 10/09 0000 Intake Total 180 180 240 Output Total 700 300 600 Balance -520 -120 -360 Intake, Oral 180 180 240 Number 0 Bowel Movements Output, Urine 700 300 600 Patient 175 lb Weight Weight Reported by Patient Measurement Method Physical Exam: On physical exam the patient's awake and alert and oriented. Head and neck exam reveals normocephalic atraumatic skull with pupils equal round and reactive to light and accommodation. Neck is supple with no JVD. Lungs are clear bilaterally. Abdomen is round soft nontender. Bilateral upper extremity's are within normal limits. Right lower extremity has no pain with range of motion of the hips near ankle. The right lower 70 is neurovascular intact. Left lower 70 is swelling from the knee down to the foot. There is pain with range of motion the knee. Tenderness to palpation about the anterior tibial crest. The extremity is grossly neurovascular intact. X-rays reveal nondisplaced proximal tibia fracture with intra-articular extension. Assessment/Plan Assessment/Plan 81-year-old male with minimal ambulation prior to a fall with a nondisplaced proximal tibia fracture. Plan will be for the patient to be nonweightbearing IN A knee immobilizer. The patient is to follow-up with me in 2 weeks. May consider anticoagulation due to the patient does not a status. Consult Acknowledgment - Thank you for your consult request.
--- NOTE | 2016-10-10 21:46 | Event Note ---
Event Note Event Note: Patient was confused, thinks he is at home. Previously he was noted to be alert, orientedX3. HR was 109, now 99. Assessment: Most likely . Plan: As he is currently not agitated, and not trying to get out of bed, will continue to monitor closely
[2016-10-10 22:26] VITALS: BP 154/74
[2016-10-11 05:45] VITALS: BP 132/76
--- NOTE | 2016-10-11 07:20 | PN- Housestaff ---
CRISTINA MARIE,[facility] 10/11/16 0720: Subjective Follow-up For: -Fall with left tibilo-fibular fracture Complaints: no complaints Subjective: Mr. Pardo has no complaints this morning. However he was noted to be confused and disoriented last night (He thought he was at home) and was probably ing. He is more alert, and does not remember the incident. He has no pain in his leg (Patient does not feel pain in his lower limbs due to Guillaine [place] sydrome). Review of Systems Constitutional: Denies: chills, fever, malaise. EENTM: Denies: blurred vision, nasal congestion. Cardiovascular: Denies: chest pain, palpitations, syncope. Respiratory: Denies: hemoptysis, short of breath, sputum production. Gastrointestinal: Denies: abdominal pain, constipation, distention, nausea. Genitourinary: Denies: dysuria, hematuria. Objective Last 24 Hrs of Vital Signs/I&O Vital Signs Date Time Temp Pulse Resp B/P B/P Pulse O2 O2 Flow FiO2 Mean Ox Delivery Rate 10/11 0545 97.9 84 20 132/76 95 Room Air 10/10 2226 99.0 99 20 154/74 95 Room Air 10/10 1443 Room Air Room Air 10/10 1440 98.8 88 20 125/80 96 Intake & Output 10/11 1600 10/11 0800 10/11 0000 Intake Total 100 450 Output Total 200 Balance 100 250 Intake, Oral 100 450 Number 0 Bowel Movements Output, Urine 200 Physical Exam General Appearance: Alert, Oriented X3, Cooperative, No Acute Distress Skin: No Rashes Skin Temp/Moisture Exam: Warm/Dry HEENT: Atraumatic, PERRLA, EOMI, Mucous Membr. moist/pink Neck: Supple, No JVD, No thryomegaly Lymphatic: Cervical nl Cardiovascular: Regular Rate, Normal S1, Normal S2, No Murmurs, Sternotomy scar noted Lungs: Clear to Auscultation, Normal Air Movement Abdomen: Normal Bowel Sounds, Soft, No Tenderness, No Hepatospenomegaly, No Masses Neurological: Normal Speech, Normal Tone Extremities: Normal Pulses, Left knee/marquez in knee immobilizer, left leg has normal color and warmth. Normal pulses, slightly swollen compared to right Vascular: Normal Pulses, Pulses Symmetrical Current Medications: Current Medications Sig/Yeimi Start time Last Medication Dose Route Stop Time Status Admin Acetaminophen 650 MG Q6P PRN 10/09 1445 AC 10/11 PO 0926 Atorvastatin Calcium 20 MG 1700 10/09 1700 AC 10/10 PO 1647 Calcium/Vitamin D 1 TAB BID 10/09 2200 AC 10/11 PO 0926 Cephalexin 250 MG 2200 10/10 2200 AC 10/10 PO 10/11 2159 2202 Cephalexin 250 MG DAILY 10/10 1000 DC PO 10/11 0959 Dipyridamole/Aspirin 1 CAP BID 10/09 2200 AC 10/11 PO 0926 Enoxaparin Sodium 40 MG DAILY 10/11 1000 UNVr SC Heparin Sodium 5,000 UNIT Q8 10/09 1434 DC 10/11 (Porcine) SC 0529 Lactobacillus 1 CAP 11:00 AM 10/10 1345 AC 10/11 Acidophilus PO 09 Morphine Sulfate 4 MG Q4P PRN 10/09 1430 AC IV Multivitamins 1 TAB DAILY 10/10 1000 AC 10/11 Therapeutic PO 09 Assessment/Plan Assessment: Patient is an 81-year-old man with 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 The patient lives with his 80-year old at home. At baseline he uses a motorized scooter or wheelchair for ambulation due to residual effects of GBS, and he can only take a few steps with a walker at best. He presents after a mechanical fall and resultant left leg weakness and swelling. Doppler ultrasound showed no DVT but left knee X-rays showed minimally displaced intraarticular proximal left tibia and fibular fractures. He is planned for conservative management with a knee immobilizer by orthopedics and to follow up with Dr. Contreras in 2 weeks around 10/22/16 in his office. He was slightly confuised yesterday night in the hospital and thought he was at home. ( probably ). He however is very alert and oriented this morning. Problem list 1. Left intraarticular proximal Tibilo-fibular fracture 2. 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 Coronary Artery Disease 4. History of recurrent UTIs on prophylactic cephalexin and on intermittent self catheterization Plan * Continue conservative management * Orthopedic surgery review appreciated. He is planned for conservative management with a knee immobilizer by orthopedics and to follow up with Dr. Conrteras in 2 weeks around 10/22/16 in his office * -Po tylenol 650 mg Q6 hrs prn for mild to moderate pain * Frequent orientation to prevent delirium. Continue straight cath protocol for urinary retention * IV morphine 4 mg Q 6 hrs PRN for severe pain * Physical therapy recommend short term rehab placement * Continue home medications cephalexin, aggrenox * Change DVT prophylaxis from SC heparin 5000 units Q 8 hrs to lovenox SC 40 mg daily for patient comfort * Regular diet as per patient request * Patient is full code Problem List: 1. Fibula fracture 2. Tibia fracture Pain Ratin Pain Location: None Pain Goal: Remain pain free Pain Plan: Tylenol and IV morphine prn Tomorrow's Labs & Rationales: None RAQUEL COOPER MD 10/11/16 1359: Attending MD Review Statement Attending Statement Attending MD Statement: examined this patient, discuss w/resident/PA/LIME TRIMMER, agreed w/resident/PA/LIME TRIMMER, reviewed EMR data (avail) Attending Assessment/Plan: Agree with [facility] assessment and plan. Patient has no pain at this time. Will mayito orthopedic and physical therapy recommendations. Continue current medications. DVT PPx. Anticipated discharge tomorrow.
[2016-10-11 14:05] VITALS: BP 110/62
[2016-10-11] MEDS ORDERED: OS-CAL 500+D31 EAC1 PO (21:20)
[2016-10-11] MEDS ORDERED: SENNA8.6 M3 PO (21:22)
[2016-10-11] MEDS ORDERED: COLACE100 M1 PO (21:24)
[2016-10-11] MEDS ORDERED: ALIGN4 M1 PO (21:30)
--- NOTE | 2016-10-11 21:42 | Patient Discharge Instructions ---
Discharge Instructions General Discharge Information You were seen/treated for: Left tibia and fibula fracture You had these procedures: None Watch for these problems: Redness, worsening swelling or pain in legs Special Instructions: 1. Follow up with your primary care provider within one week of discharge. 2. You were treated conservatively for your leg fracture with a knee immobilizer. Please follow up with orthopedic surgeon Dr. Contreras in 2 weeks around 10/22/16 in his office. 3. Elevate your leg in bed to reduce swelling Diet Continue normal diet: No Recommended Diet: Regular Activity Full Activity/No Limits: No Activity Self Limited: No Activity Limited to: No weight bearing (On left leg) Acute Coronary Syndrome Inclusion Criteria At DC or during hospital stay patient has or had the following: ACS DIAGNOSIS No Discharge Core Measures Meds if any: Prescribed or Continued at Discharge Meds if any: NOT Prescribed or Continued at Discharge Congestive Heart Failure Inclusion Criteria At DC or during hospital stay patient has or had the following: CHF DIAGNOSIS No Discharge Core Measures Meds if any: Prescribed or Continued at Discharge Meds if any: NOT Prescribed or Continued at Discharge Cerebrovascular accident Inclusion Criteria At DC or during hospital stay patient has or had the following: CVA/TIA Diagnosis No Discharge Core Measures Meds if any: Prescribed or Continued at Discharge Meds if any: NOT Prescribed or Continued at Discharge Venous thromboembolism Inclusion Criteria VTE Diagnosis No VTE Type NONE VTE Confirmed by (Test) NONE Discharge Core Measures - Per Current guidelines, there needs to be overlap - treatment for the first 5 days of Warfarin therapy. - If discharged on Warfarin prior to 5 days of - overlap therapy, the patient will need to be - assessed for post discharge needs including - *Post discharge parental anticoagulation - *Warfarin and/or parental anticoagulation education - *Follow up date to check INR post discharge At least 5 days overlap therapy as Inpatient No Meds if any: Prescribed or Continued at Discharge Note: Overlap Therapy is Warfarin and Anticoagulant Meds if any: NOT Prescribed or Continued at Discharge
--- NOTE | 2016-10-11 22:08 | Discharge Summary ---
Visit Information Visit Dates Admission Date: 10/09/16 Discharge Date: 10/12/16 Hospital Course Course Attending Physician: RAQUEL COOPER MD Primary Care Physician: SILVIA MARIE,TYLOR Lopez Consulting Request: Consulting Specialty: Orthopedics Consulting Physician: Dr. Contreras Reason for Consult: Left tibia and fibula intra-articular fracture Hospital Course: Mr. Pardo is an 81-year-old man with history of Guillain-Monroe syndrome (1964) with residual bilateral leg weakness, lack of pain sensation in legs, and neurogenic bladder, history of femur fracture and surgical repair, recurrent UTIs, HLD/CAD s/p NV and CABG x 5 (2003), and possible history of TIA. He lives with his 80-year old at home. At baseline, he uses a motorized scooter or wheelchair for ambulation due to residual effects of GBS, and he can only take a few steps with a walker at best. A day prior to presentation, in the evening around 8 pm, he slipped and fell in his bathroom as he was trying to transfer from the [facility] to his scooter. He slipped and fell on his backside twisting his knee and landing on his left foot. He denied chest pain, shortness of breath, lightheadedness or palpitations prior to this episode. He stated that he felt no pain in his knee but did note some swelling/tight feeling there. He was unable to get up on his own, and was on the floor for about 30 minutes before his found him and lifted him up with the help of a friend. He slept overnight at home, but on awakening the morning of presentation, he noted some slight pain in the left knee -about 2/10 intensity. His knee also appeared more swollen. He then noticed that he could not get up from the comode as he used to, and when his could not help him, she called the EMS who brought him to the ER for evaluation. Physical signs on presentation in the ER as follows: Physical Exam General Appearance: Alert, Oriented X3, Cooperative, No Acute Distress Skin: No Rashes Skin: Temp/Moisture Exam: Warm/Dry Sepsis: Skin Exam (color): Normal for Ethnicity HEENT: Atraumatic, PERRLA, EOMI, Mucous Membr. moist/pink Neck: Supple, No JVD, No thryomegaly, +2 Carotid Pulse wo Bruit Lymphatic: Cervical nl Cardiovascular: Regular Rate, Normal S1, Normal S2, No Murmurs Lungs: Clear to Auscultation, Normal Air Movement Abdomen: Normal Bowel Sounds, Soft, No Tenderness, No Hepatospenomegaly, No Masses Neurological: Normal Speech, Reduced tone in lower limbs bilaterally, Strength 2 /5 in both lower limbs Extremities: No Edema, Normal Pulses Vascular: Normal Pulses, Pulses Symmetrical Doppler ultrasound showed no DVT but left knee X-rays showed minimally displaced intraarticular proximal left tibia and fibular fractures. He was admitted to the general medicine floor for treatment of his left displaced intraarticular proximal left tibia and fibular fractures. He was reviewed by orthopedic surgeon Dr. Contreras and recommended conservative management with a knee immobilizer. He was also reviewed by physical therapists and they recommended him for short term rehabilitation. His home medications were continued including cephalexin for his recurrent UTIs. His pain was well controlled with tylenol as needed. He was discharged to a short term rehabilitation facility and planned directed to follow up with orthopedic surgeon Dr. Contreras in 2 weeks around 10/22/16 in his office. Allergies: Coded Allergies: MDX - Latex (LATEX) (ITCHY AND HIVES 08/12/13) Disposition Summary Disposition Principal Diagnosis: 1. Left intraarticular proximal tibial and fibular fracture Additional Diagnosis: 2. 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 Coronary Artery Disease 4. History of recurrent UTIs on prophylactic cephalexin and on intermittent self catheterization Discharge Disposition: SNF Discharge Instructions General Discharge Information Code Status: Full Code Patient's Diet: Regular diet Patient's Activity: Self limited activity; Non weight bearing to left leg Follow-Up Instructions/Appts: 1. Follow up with your primary care provider within one week of discharge. 2. You were treated conservatively for your leg fracture with a knee immobilizer. Please follow up with orthopedic surgeon Dr. Contreras in 2 weeks around 10/22/16 in his office. 3. Elevate your leg in bed to reduce swelling Medications at Discharge Discharge Medications: Continue taking these medications: Cephalexin (Cephalexin) 250 MG CAPSULE 1 Capsule ORAL AT BEDTIME Qty = 90 Dipyridamole W/ Aspirin (Aggrenox 25 MG-200 MG Capsule) 25 MG-200 MG CPMP.12HR 1 Capsule ORAL TWICE DAILY Qty = 180 Simvastatin (Simvastatin*) 40 MG TABLET 1 Tablet ORAL Every night Qty = 90 Multiple Vitamin (Multivitamins) 1 EACH TABLET 1 Tablet ORAL DAILY Calcium Carbonate/Vitamin D3 (Os-Mikhail 500+D3 Caplet) 500 MG-200 TABLET 1 Tablet ORAL TWICE DAILY Sennosides (Senna) 8.6 MG TABLET 1 Tablet ORAL Every night as needed as needed for Constipation Docusate Sodium (Colace) 100 MG CAPSULE 1 Capsule ORAL Every night as needed as needed for Constipation Bifidobacterium Infantis (Align) 4 MG (1 BILLION CELL) CAPSULE 1 Capsule ORAL DAILY Start taking the following new medications: Enoxaparin Sodium (Lovenox) 40 MG/0.4 ML SYRINGE 0.4 Milliliters Inject into fatty tissue DAILY Qty = 42 No Refills Instructions: Complete a 6 week course Acetaminophen (Tylenol) 325 MG TABLET 1 Tablet ORAL EVERY 4 HOURS NEEDED as needed for PAIN Qty = 60 No Refills Copies To: KENNETH MARIE,SHERRY VEGA MD,TYLOR Lopez; RC MARIE,MAIRA Reno
[2016-10-12 06:51] VITALS: BP 136/72
--- NOTE | 2016-10-12 07:47 | PN- Housestaff ---
Subjective Follow-up For: -Fall with left tibial and fibular fracture Complaints: no complaints Subjective: Mr. Pardo has no complaints this morning. He is alert, and had an uneventful night. 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 He is ready to goto the rehabilitation facility. Review of Systems Constitutional: Denies: chills, fever, malaise. EENTM: Denies: double vision, nasal congestion, epistaxis. Cardiovascular: Denies: chest pain, palpitations, syncope. Respiratory: Denies: cough, short of breath, sputum production. Gastrointestinal: Denies: abdominal pain, bowel incontinence, nausea. Genitourinary: Denies: dysuria. Musculoskeletal: Denies: back pain, joint pain. Objective Last 24 Hrs of Vital Signs/I&O Vital Signs Date Time Temp Pulse Resp B/P B/P Pulse O2 O2 Flow FiO2 Mean Ox Delivery Rate 10/12 0651 99.0 99 20 136/72 95 Room Air 10/11 1405 98.5 108 20 110/62 96 Intake & Output 10/12 1600 10/12 0800 10/12 0000 Intake Total Output Total 350 600 Balance -350 -600 Output, Urine 350 600 Physical Exam General Appearance: Alert, Oriented X3, Cooperative, No Acute Distress Skin: No Rashes Skin Temp/Moisture Exam: Warm/Dry Sepsis Skin Exam (color): Normal for Ethnicity HEENT: Atraumatic, EOMI, Mucous Membr. moist/pink Neck: Supple, No JVD, No thryomegaly Lymphatic: Cervical nl Cardiovascular: Regular Rate, Normal S1, Normal S2, No Murmurs Lungs: Clear to Auscultation, Normal Air Movement Abdomen: Normal Bowel Sounds, Soft, No Tenderness, No Hepatospenomegaly, No Masses Neurological: Normal Speech, Power grade 2/5 in both lower limbs Extremities: No Clubbing, No Cyanosis, Normal Pulses, Left leg edema present up to knee, no redness or differential warmth. Dorsalis pedis pulses in both legs are nomal Vascular: Normal Pulses, Pulses Symmetrical Current Medications: Current Medications Sig/Yeimi Start time Last Medication Dose Route Stop Time Status Admin Acetaminophen 650 MG Q6P PRN 10/09 1445 AC 10/11 PO 0926 Atorvastatin Calcium 20 MG 1700 10/09 1700 AC 10/11 PO 1631 Calcium/Vitamin D 1 TAB BID 10/09 2200 AC 10/12 PO 0942 Cephalexin 250 MG 0 10/10 2200 DC 10/10 PO 10/11 2159 2202 Dipyridamole/Aspirin 1 CAP BID 10/09 2200 AC 10/12 PO 0942 Enoxaparin Sodium 40 MG DAILY 10/11 1000 AC 10/12 SC 0942 Lactobacillus 1 CAP 11:00 AM 10/10 1345 AC 10/12 Acidophilus PO 1138 Morphine Sulfate 4 MG Q4P PRN 10/09 1430 AC IV Multivitamins 1 TAB DAILY 10/10 1000 AC 10/12 Therapeutic PO 0942 Patient Medication 1 ED .[facility] 10/11 1333 [place] Teaching ED 10/11 1334 Assessment/Plan Assessment: Patient is an 81-year-old man with 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 The patient lives with his 80-year old at home. At baseline he uses a motorized scooter or wheelchair for ambulation due to residual effects of GBS, and he can only take a few steps with a walker at best. He presents after a mechanical fall and resultant left leg weakness and swelling. Doppler ultrasound showed no DVT but left knee X-rays showed minimally displaced intraarticular proximal left tibia and fibular fractures. He is planned for conservative management with a knee immobilizer by orthopedics and to follow up with Dr. Contreras in 2 weeks around 10/22/16 in his office. He is doing very well and is ready for discharge. Problem list 1. Left intraarticular proximal Tibial and fibular fracture 2. History of Guilaine Houston syndrome with residual paraparesis and neurogenic bladder 3. Coronary Artery Disease 4. History of recurrent UTIs on prophylactic cephalexin and on intermittent self catheterization Plan * Patient is stable for disharge * Continue conservative management * Orthopedic surgery review appreciated. He is planned for conservative management with a knee immobilizer by orthopedics and to follow up with Dr. Contreras in 2 weeks around 10/22/16 in his office * Continue Po tylenol 650 mg Q6 hrs prn for mild to moderate pain * Frequent orientation to prevent delirium. Continue intermittent straight urinary catheterization protocol for urinary retention/Neurogenic bladder * Can stop IV morphine 4 mg Q 6 hrs PRN for severe pain as patient did not need it * Physical therapy recommend short term rehab placement- He has a bed at rehab today * Continue home medications cephalexin, aggrenox * Continue DVT prophylaxis with lovenox SC 40 mg daily for patient comfort for 6 weeks to prevent DVT * Regular diet as per patient request * Patient is full code Problem List: 1. Fibula fracture 2. Tibia fracture Pain Ratin Pain Location: None Pain Goal: Remain pain free Pain Plan: Po ylenol as needed Tomorrow's Labs & Rationales: None needed Consulting Request: Consulting Specialty: Orthopedics Consulting Physician: Dr. Contreras Reason for Consult: Left tibia and fibula intra-articular fracture
[2016-10-12] MEDS ORDERED: LOVENOX40 MG/0.1 SC (10:58)
[2016-10-12] MEDS ORDERED: TYLENOL325 M1 PO (11:00)
[2016-10-12 12:29] VITALS: BP 136/72
== END 2016-10-12 13:10 | DRG 563 ==
LOC: ERH 08:29 → ERHI 10:55 → 2NA 10:55 → ENRESERV 11:41 → ENTRNSPT 11:52 → EDTRNSPT 11:59 → EDTRNSPTTYP 11:59 → ERHI 12:07 → 2NA 12:09 → CMPTRNSPT 12:47 → 2NA 10-12 13:10
PROVIDERS: Emergency Medicine; Internal Medicine; ADMIT Internal Medicine
PROC: 2W3RX1Z Immobilization of Left Lower Leg using Splint (ICD-10-PCS; principal; 2016-10-09)
DX: S82.102A Unspecified fracture of upper end of left tibia, initial encounter for closed fracture (principal); G65.0 Sequelae of Guillain-Barre syndrome; S82.832A Other fracture of upper and lower end of left fibula, initial encounter for closed fracture; Z95.1 Presence of aortocoronary bypass graft; N31.9 Neuromuscular dysfunction of bladder, unspecified; I25.10 Atherosclerotic heart disease of native coronary artery without angina pectoris; I25.2 Old myocardial infarction; G83.14 Monoplegia of lower limb affecting left nondominant side; G83.11 Monoplegia of lower limb affecting right dominant side; W01.0XXA Fall on same level from slipping, tripping and stumbling without subsequent striking against object, initial encounter; Y92.002 Bathroom of unspecified non-institutional (private) residence as the place of occurrence of the external cause; Z87.891 Personal history of nicotine dependence
CPT/HCPCS: 2NASP; 72170; 73552; 73562-LT; 73600-LT; 81001; 93005; 93010; 93970; 97110-GO; 97112-GO; 97161-GP; 97530-GO; J1644; J1650

== ENCOUNTER 2017-10-04 12:58 | Inpatient (IN) | payer OTHER ==
[~2017-10-04] VITALS: Ht 180.3 cm; Wt 88.9 kg
[~2017-10-04 12:58] MED LIST: AGGRENOX 25 MG1 EACH PO; ALIGN4 M1 PO; CALCIUM + D SO1 EACH PO; CEPHALEXIN250 M2 PO; COLACE100 M1 PO; LOVENOX40 MG/0.1 SC; MULTIVITAMINS1 EAC9 PO; OS-CAL 500+D31 EAC1 PO; SENNA8.6 M3 PO; SIMVASTATIN40 M1 PO; TYLENOL WITH C1 EACH PO; TYLENOL325 M1 PO
--- NOTE | 2017-10-04 13:35 | ED NEURO DEFICIT/STROKE ---
History of Present Illness General Chief Complaint: General Adult Stated Complaint: CONFUSED,PROBLEM TAKING. Source: patient, family Exam Limitations: no limitations Vital Signs & Intake/Output Vital Signs & Intake/Output Vital Signs Date Time Temp Pulse Resp B/P B/P Pulse O2 O2 Flow FiO2 Mean Ox Delivery Rate 10/04 1659 98.4 76 18 136/84 98 Room Air 10/04 1432 97.9 88 16 140/80 99 Room Air 10/04 1335 98 Room Air 10/04 1330 96.0 89 18 134/72 95 Room Air Allergies Coded Allergies: latex (Intermediate, HIVES AND ITCHY 02/22/17) Reconcile Medications Bifidobacterium Infantis (Align) 4 MG (1 BILLION CELL) CAPSULE 1 CAP PO DAILY Probiotic (Reported) Calcium Carbonate/Vitamin D3 (Os-Mikhail 500+D3 Caplet) 500 MG-200 TABLET 1 TAB PO BID Vitamin Support (Reported) Cephalexin 250 MG CAPSULE 1 CAP PO AT BEDTIME UTI PROPHYLACTIC (Reported) Dipyridamole W/ Aspirin (Aggrenox 25 MG-200 MG Capsule) 25 MG-200 MG CPMP.12HR 1 CAP PO BID BLOOD THINNER (Reported) Docusate Sodium (Colace) 100 MG CAPSULE 1 CAP PO QPMP PRN Constipation ( Reported) Multiple Vitamin (Multivitamins) 1 EACH TABLET 1 TAB PO DAILY VITAMIN SUPPORT (Reported) Sennosides (Senna) 8.6 MG TABLET 1 TAB PO QPM PRN Constipation (Reported) Simvastatin (Simvastatin*) 40 MG TABLET 1 TAB PO QPM HEART HEALTH (Reported) Triage Note: 82 YO MALE TO ER ROOM 20 VIA WHEELCAHIR. PT HX OF GUILLIAN BARRE, WHEELCHAIR BOUND AT BASELINE. PER PT STARTED WITH CONFUSION YESTERDAY WITH A HEADACHE AND TODAY NOTED TO HAVE SLURRED SPEECH AROUND 11AM. PT ARRIVES A&O X3. SPEECH CLEAR, EQAUL HAND GRASPS AND SMILE NOTED. PT ASSITED ONTO STRETCHER BY 3 STAFF MEMEBRS. PA AT BEDSIDE FOR EVAL. Triage Nurses Notes Reviewed? yes Onset: Gradual Duration: hour(s): Timing: single episode today Severity: moderate Vision Problem? No Impaired Ability: difficult to speak HPI: 82YO male with hx of TIA, CAD s/p CABG, guillian barre syndrome presents to ED complaining of slurred speach and confusion detected around 11 AM today. Patient 's aid found him with slurred speach around 11, states that this resovled after a few minutes however states the patient seems more confused than normal. His niece is present who states that the patient did not recognize her. states that recently patient's blood pressure has been elevated, as high as 190' s/90. BP has fluctuated through out the day and normalizes. Patient has hx of neurogenic bladder, straigh cath's himself TID, in on prophylactic keflex for UTI prevention. Patient complainined of headache and dizziness yesterday, these symptoms resolved. Patient currently denies headache, chest pain, dypnea, abdominal pain, nausea, fevers. (Dunia Chavarria) Past History Travel History Traveled to [place] past 21 day No Medical History Any Pertinent Medical History? see below for history Neurological: GBS EENT: NONE Cardiovascular: hyperlipidemia, myocardial infarction Respiratory: NONE Gastrointestinal: constipation Hepatic: NONE Renal: neurogenic bladder, urinary incontinence, CHRONIC UTI Musculoskeletal: fracture Psychiatric: NONE Endocrine: NONE Blood Disorders: NONE Cancer(s): NONE FIELD INVESTIGATOR/Reproductive: NONE History of MRSA: No History of VRE: No History of CDIFF: No Surgical History Surgical History: CABG, LEFT FEMUR FREDERICK Psychosocial History Who do you live with Spouse Services at Home Nursing What is your primary language Serbian Tobacco Use: Never used Family History Family History, If Any: FATHER FH: CHF (congestive heart failure) Hx Contributory? No (Dunia Chavarria) Review of Systems Review of Systems Constitutional: Reports: no symptoms. EENTM: Reports: no symptoms. Respiratory: Reports: no symptoms. Cardiovascular: Reports: see HPI. GI: Reports: no symptoms. Genitourinary: Reports: no symptoms. Musculoskeletal: Reports: no symptoms. Skin: Reports: no symptoms. Neurological/Psychological: Reports: see HPI. Hematologic/Endocrine: Reports: no symptoms. Immunologic/Allergic: Reports: no symptoms. All Other Systems: Reviewed and Negative (Dunia Chavarria) Physical Exam Physical Exam General Appearance: well developed/nourished, no apparent distress, alert, awake Head: atraumatic, normal appearance Eyes: Bilateral: normal appearance, PERRL, EOMI. Ears, Nose, Throat: hearing grossly normal Neck: normal inspection, supple, full range of motion Respiratory: normal breath sounds, no respiratory distress, lungs clear Cardiovascular: regular rate/rhythm Gastrointestinal: normal bowel sounds, soft, non-tender, no organomegaly Back: normal inspection, normal range of motion Extremities: diminished ROM to bilateral lower extremities d/t weakness Psychiatric: awake, alert, oriented x 3 Cranial Nerves: normal hearing, normal speech, PERRL, CN II-XII intact Motor/Sensory: no sensory deficit, weakness to bilateral lower extremities Skin: intact, normal color, warm/dry Core Measures CVA/TIA Diagnosis: Yes NIH Stroke Scale NIH Stroke Scale Response Value Level of Consciousness alert 0 LOC Questions answers both correctly 0 LOC Commands obeys both correctly 0 Best Gaze normal 0 Visual Bryan no visual loss 0 Facial Paresis normal 0 Motor Arm - Left no drift 0 Motor Arm - Right no drift 0 Limb Ataxia no ataxia 0 Sensory normal 0 Best Language no aphasia 0 Dysarthria normal articulation 0 Extinction and Inattention no neglect 0 Total 0 Symptom Start Date: 10/04/17 Symptom Start Time: 1100 Swallow Evaluation Pass Swallow eval date 10/04/17 Swallow eval time 1703 Sepsis Present: No Sepsis Focused Exam Completed? No (Leatha RADFORD,Dunia Arteaga) Progress Differential Diagnosis: drug intoxication, electrolyte imbalance, encephalitis, intracranial Hem., intracranial mass/tumor, migraine BURR, stroke, UTI, hypoglycemia, TIA Plan of Care: Orders Procedure Date/time Status CBC WITHOUT DIFFERENTIAL 10/05 0600 Active BASIC ELECTROLYTES PLUS BUN&CR 10/05 0600 Active Heart Healthy Diet 10/04 D Active Pathway - chart 10/04 1611 Active Code Status 10/04 1611 Active ECHOCARDIOGRAM 10/04 1611 Active Patient Data 10/04 1538 Active ED Holding Orders 10/04 1530 Active Admit to inpatient 10/04 1530 Active Vital Signs 10/04 1530 Active Code Status 10/04 1530 Complete Add-on Test (ER Only) 10/04 1447 Active Intake & Output 10/04 1432 Active Add-on Test (ER Only) 10/04 1346 Active URINE DRUG SCREEN FOR ER ONLY 10/04 1345 Complete CULTURE,URINE 10/04 1335 Active URINALYSIS 10/04 1335 Complete Add-on Test (ER Only) 10/04 1333 Active TROPONIN LEVEL 10/04 1332 Complete PARTIAL THROMBOPLASTIN TIME 10/04 1332 Complete PROTHROMBIN TIME 10/04 1332 Complete LIPID PANEL 10/04 1332 Complete LACTIC ACID 10/04 1332 Complete COMPREHENSIVE METABOLIC PANEL 10/04 1331 Complete CBC WITHOUT DIFFERENTIAL 10/04 1331 Complete FingerStick- Glucose 10/04 1330 Active EKG 10/04 1300 Active [id number] DOPPLER 10/04 UNK Active SWALLOW EVALUATION 10/04 UNK Active House Staff 10/04 UNK Active Lab Add-on Test 10/04 UNK Active Occupational Tx Eval & Treat 10/04 UNK Active VTE Mechanical Prophylaxis 10/04 UNK Active Vital Signs 10/04 UNK Active Telemetry/Credit Risk Associate 10/04 UNK Active Straight Cath 10/04 UNK Active NIH Stroke Scale 10/04 UNK Active Activity/Ambulation 10/04 UNK Active Current Medications Sig/Yeimi Start time Last Medication Dose Stop Time Status Admin Enoxaparin Sodium 40 MG DAILY 10/05 0900 AC (Lovenox) Cephalexin 250 MG AT BEDTIME 10/04 2100 AC (Keflex) Dipyridamole/Aspirin 1 CAP BID 10/04 2100 AC (Aggrenox) Atorvastatin Calcium 40 MG 1700 10/04 1700 AC 10/04 (Lipitor) 1720 Sodium Chloride 1,000 ML .[id number] 10/04 1630 AC 10/04 (Normal Saline 0.9%) 10/05 0549 1654 Docusate Sodium 100 MG AT BEDTIME NEED.. 10/04 1615 AC (Colace) Multivitamins 1 TAB DAILY 10/04 1612 AC 10/04 Therapeutic 1720 (Theragran-M Vitamins Tabs) Laboratory Tests 10/04/17 1426: Urine Opiates Screen < 100, Methadone Screen < 40, Barbiturate Screen < 60, Ur Phencyclidine Scrn < 6.00, Amphetamines Screen < 100, U Benzodiazepines Scrn < 85, Urine Cocaine Screen < 50, Urine Cannabis Screen < 5.00, Urine Color YEL, Urine Clarity CLEAR, Urine pH 6.5, Ur Specific [place] 1.010, Urine Protein NEG, Urine Ketones NEG, Urine Nitrite NEG, Urine Bilirubin NEG, Urine Urobilinogen 0.2, Ur Leukocyte Esterase TRACE H, Ur Microscopic SEDIMENT EXAMINED, Urine RBC RARE, Urine WBC RARE, Urine Hemoglobin TRACE-INTACT H, Urine Glucose NEG 10/04/17 1332: Anion Gap 10, Estimated GFR > 60, BUN/Creatinine Ratio 23.6, Glucose 207 H, Lactic Acid 1.6, Calcium 9.6, Total Bilirubin 0.8, AST 16 L, ALT 22, Alkaline Phosphatase 63, Troponin I < 0.01, Total Protein 6.2 L, Albumin 3.6, Globulin 2.6, Albumin/Globulin Ratio 1.4, Triglycerides 116, Cholesterol 134, LDL Cholesterol, Calc 59 L, HDL Cholesterol 52, Cholesterol/HDL Ratio 3, PT 11.2, INR 1.03, APTT 28, CBC w Diff NO MAN DIFF REQ, RBC 3.91 L, MCV 95.9 H, MCH 32.5 H, MCHC 33.9, RDW 14.6 H, MPV 8.7, Gran % 71.5, Lymphocytes % 17.0 L, Monocytes % 8.6, Eosinophils % 2.5, Basophils % 0.4, Absolute Granulocytes 5.1, Absolute Lymphocytes 1.2, Absolute Monocytes 0.6, Absolute Eosinophils 0.2, Absolute Basophils 0 Microbiology 10/04 1426 URINE ROUT: Urine Culture - RECD Head CT does not show acute changes compared to prior studies, no evidence of hemorrhage. Patient's NIH stroke scale is zero here. He has baseline weakness in bilateral lower extremities, otherwise no detected neurologic deficit. Patient does have persistent confusion per his family members who are present. Previous slurred speach symptoms resolved after minutes and prior to arrival. Patient needs work up for possible TIA. Spoke with case management and Dr. Garcia. Patient requries telemetry admission for evalation of his persistent confusion and TIA work up. He cannot get MRI at this time as he has metal frederick in left leg. He will also require frequent neuro checks, neurology consult, echocardiogram, cardiology consult. Spoke with Dr. Singleton regaring admission. 4:02 - Spoke with Dr. Currie who agrees with the plan at this time, continue to observe the patient while he is admitted and futher assess for TIA. Diagnostic Imaging: Viewed by Me: CT Scan. Discussed w/RAD: CT Scan. Radiology Impression: PATIENT: TOMÁS MEIER PRESENT AGE: 82 PATIENT ACCOUNT NO: [id number] : 33 LOCATION: [facility] ORDERING PHYSICIAN: Dunia RADFORD SERVICE DATE: 10/04/17 EXAM TYPE: CAT - CT HEAD WO IV CONTRAST EXAMINATION: CT HEAD WITHOUT CONTRAST CLINICAL INFORMATION: Slurred speech. Altered mental status. COMPARISON: 08/12/13 TECHNIQUE: Multidetector CT examination of the head is performed without contrast. DLP: 614 mGy-cm FINDINGS: There is no evidence of a recent intracranial hemorrhage or extra-axial collection. The midline structures are nondisplaced. There is unchanged prominence of the ventricles, cisterns and sulci. There is no evidence of an intra-axial mass. There are no suspicious focal areas of abnormal brain attenuation. The bruce-white interface is within normal limits. There is no evidence of acute territorial cortical infarct. There is extensive patchy subcortical, deep and periventricular white matter low- attenuation similar to the previous study. There is partial opacification the right side of the sphenoid sinus. IMPRESSION: 1. There is no evidence of a recent intracranial hemorrhage. 2. No acute infarct. 3. Atrophy. Extensive nonspecific white matter disease possibly related to microangiopathy. This appears similar to the previous study. It would be difficult to detect a small new white matter infarct. DICTATED BY: Sky Estes MD DATE/TIME DICTATED:1401 CAMOUFLAGE ASSEMBLER:DANNY DATE/TIME TRANSCRIBED:10/04/171401 CONFIDENTIAL, DO NOT COPY WITHOUT APPROPRIATE AUTHORIZATION. <Electronically signed in Other Vendor System> SIGNED BY: Sky Estes MD 10/04/17 1410 Initial ED EKG: sinus rhythm @84bpm, RBBB Prior EKG: unchanged (10/09/16) (Leatha RADFORD,Dunia Arteaga) Departure Departure Disposition: STILL A PATIENT Condition: Stable Clinical Impression Primary Impression: TIA (transient ischemic attack) Qualifiers: Transient cerebral ischemia type: unspecified Qualified Code: G45.9 - Transient cerebral ischemic attack, unspecified Secondary Impressions: Confusion Dehydration Headache Qualifiers: Headache type: unspecified Headache chronicity pattern: acute headache Intractability: not intractable Qualified Code: R51 - Headache Referrals: Mirta MARIE,Estiven Lopez (PCP/Family) Departure Forms: Customer Survey General Discharge Information Admission Note Spoke With: Ata Singleton MD Documentation of Exam: Documentation of any treatments & extenuating circumstances including Concerns Regarding Discharge (functional status, medication knowledge or non-compliance, living conditions, etc.) that warrant an admission rather than observation: [ possible TIA with episode of slurred speach and persistent confusion requiring telemetry monitoring, frequent neuro checks, neurology consult, possible MRI, echocardiogram, cardiology consult, repeat EKGs, repeat troponins, dehydration requiring possible IV fluid rehydration, repeat labs, premature discharge medically unsafe. ] (Leatha RADFORD,Dunia Arteaga) PA/CLEARING DISTRIBUTION CLERK Co-Sign Statement Statement: ED Attending supervision documentation- [X] I saw and evaluated the patient. I have also reviewed all the pertinent lab results and diagnostic results. I agree with the findings and the plan of care as documented in the PA's/CLEARING DISTRIBUTION CLERK's documentation. [X] I have reviewed the ED Record and agree with the PA's/CLEARING DISTRIBUTION CLERK's documentation. [] Additions or exceptions (if any) to the PAs/CLEARING DISTRIBUTION CLERK's note and plan are summarized below: [Patient presents with an episode of slurred speech. Patient is awake alert and oriented 3 however when his niece walked into the room a transiently did not recognize her. Patient has had a prior CVA. Patient will be admitted for further evaluation and neurological consultation.] (Radha MARIE,Quinn Valenzuela)
[2017-10-04 13:52] LABS: PT 11.2 SEC (9.4-12.5); PTT 28 SEC (25-37)
[2017-10-04 14:03] LABS: ABSOLUTE BASOPHIL COUNT 0 /CUMM (0.0-0.2); ABSOLUTE EOSINOPHIL COUNT 0.2 /CUMM (0.0-0.7); ABSOLUTE GRANULOCYTE CT 5.1 /CUMM (1.4-6.5); ABSOLUTE LYMPH COUNT 1.2 /CUMM (1.2-3.4); ABSOLUTE MONOCYTE COUNT 0.6 /CUMM (0.10-0.60); BASOPHIL % 0.4 % (0.0-2.0); EOSINOPHIL % 2.5 % (0-5); GRANULOCYTE % 71.5 % (42.2-75.2); HEMATOCRIT 37.5 % (42-52); MEAN CORPUSCULAR HGB 32.5 PG (27.0-31.0); MEAN CORPUSCULAR HGB CONC 33.9 G/DL (33.0-37.0); MEAN CORPUSCULAR VOLUME 95.9 FL (80.0-94.0); MEAN PLATELET VOLUME 8.7 FL (7.4-10.4); PLATELET COUNT 290 /CUMM (130-400); RBC DISTRIBUTION WIDTH 14.6 % (11.5-14.5); RED BLOOD CELL CT 3.91 /CUMM (4.70-6.10); WHITE BLOOD CELL COUNT 7.1 /CUMM (4.8-10.8)
--- NOTE | 2017-10-04 14:10 | CT SCAN REPORT ---
EXAMINATION: CT HEAD WITHOUT CONTRAST CLINICAL INFORMATION: Slurred speech. Altered mental status. COMPARISON: 08/12/13 TECHNIQUE: Multidetector CT examination of the head is performed without contrast. DLP: 614 mGy-cm FINDINGS: There is no evidence of a recent intracranial hemorrhage or extra-axial collection. The midline structures are nondisplaced. There is unchanged prominence of the ventricles, cisterns and sulci. There is no evidence of an intra-axial mass. There are no suspicious focal areas of abnormal brain attenuation. The bruce-white interface is within normal limits. There is no evidence of acute territorial cortical infarct. There is extensive patchy subcortical, deep and periventricular white matter low-attenuation similar to the previous study. There is partial opacification the right side of the sphenoid sinus. IMPRESSION: 1. There is no evidence of a recent intracranial hemorrhage. 2. No acute infarct. 3. Atrophy. Extensive nonspecific white matter disease possibly related to microangiopathy. This appears similar to the previous study. It would be difficult to detect a small new white matter infarct.
--- NOTE | 2017-10-04 15:44 | History & Physical ---
Andres MARIE,[facility] 10/04/17 1543: General Information and HPI MD Statement: I have seen and personally examined TOMÁS MEIER and documented this H&P. The patient is a 82 year old M who presented with a patient stated chief complaint of [confusion, dizziness]. Source of Information: patient, family Exam Limitations: no limitations History of Present Illness: 82 yo M with PMH of TIA, hyperlipidemia, GBS, CAD s/p CABG, urinary incontinence (on straight cath), recurrent UTI on prophylaxis with Keflex was brought to the ED by family members for evaluation of confusion. History has been obtained from the patient and the present at bedside. The patient states that for the past week or so he hasn't felt good. There have been good and bad days. When inquired further about 'bad days' he explains that he has difficulties in his daily activities like playing cards. Yesterday his visiting aid was helping him clean and bathe and in the middle he got confused and forgot what was going on. The explains that earlier this morning, she was out shopping and when she returned home she was informed by the visiting nurse that the patient was doing his daily rowing exercise when he got confused, had slurring of speech and became dizzy. His symptoms resolved by the time she was home. However, she felt concerned and brought him to the ED. The patient denies feeling any dizziness, lightheadedness, chest pain, palpitations or any other associated symptoms. 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 He normally ambulates at home in his scooter or sometimes using a walker or a cane with aid. He personally feels that he doesn't feel any weakness beyond his baseline. Of note, the patient states that yesterday he had 2-3 episodes of loose bowel movement. However, he does tend to get diarrhea every now and then. Allergies/Medications Allergies: Coded Allergies: latex (Intermediate, HIVES AND ITCHY 02/22/17) Home Med list Bifidobacterium Infantis (Align) 4 MG (1 BILLION CELL) CAPSULE 1 CAP PO DAILY Probiotic (Reported) Calcium Carbonate/Vitamin D3 (Os-Mikhail 500+D3 Caplet) 500 MG-200 TABLET 1 TAB PO BID Vitamin Support (Reported) Cephalexin 250 MG CAPSULE 1 CAP PO AT BEDTIME UTI PROPHYLACTIC (Reported) Dipyridamole W/ Aspirin (Aggrenox 25 MG-200 MG Capsule) 25 MG-200 MG CPMP.12HR 1 CAP PO BID BLOOD THINNER (Reported) Docusate Sodium (Colace) 100 MG CAPSULE 1 CAP PO QPMP PRN Constipation ( Reported) Multiple Vitamin (Multivitamins) 1 EACH TABLET 1 TAB PO DAILY VITAMIN SUPPORT (Reported) Sennosides (Senna) 8.6 MG TABLET 1 TAB PO QPM PRN Constipation (Reported) Simvastatin (Simvastatin*) 40 MG TABLET 1 TAB PO QPM HEART HEALTH (Reported) Past History Travel History Traveled to [place] past 21 day No Medical History Neurological: GBS EENT: NONE Cardiovascular: hyperlipidemia, myocardial infarction Respiratory: NONE Gastrointestinal: constipation Hepatic: NONE Renal: neurogenic bladder, urinary incontinence, UTI Psychiatric: NONE Endocrine: NONE Blood Disorders: NONE Cancer(s): NONE 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 spouse Services at Home: Nursing Review of Systems Review of Systems Constitutional: Denies: chills, fever. EENTM: Denies: visual changes, hearing changes. Cardiovascular: Denies: chest pain, palpitations. Respiratory: Denies: cough, short of breath. GI: Reports: diarrhea. Genitourinary: Reports: no symptoms. Musculoskeletal: Reports: no symptoms. Skin: Reports: no symptoms. Neurological/Psychological: Denies: numbness, paresthesia. Exam & Diagnostic Data Last 24 Hrs of Vital Signs/I&O Vital Signs Date Time Temp Pulse Resp B/P B/P Pulse O2 O2 Flow FiO2 Mean Ox Delivery Rate 10/04 1659 98.4 76 18 136/84 98 Room Air 10/04 1432 97.9 88 16 140/80 99 Room Air 10/04 1335 98 Room Air 10/04 1330 96.0 89 18 134/72 95 Room Air Intake & Output 10/04 1600 10/04 0800 10/04 0000 Intake Total Output Total 175 Balance -175 Output, Urine 175 Physical Exam General Appearance Alert, Oriented X3, Cooperative, No Acute Distress Skin No Rashes, No Breakdown Skin Temp/Moisture Exam: Warm/Dry Sepsis Skin Exam (color): Normal for Ethnicity HEENT Atraumatic Cardiovascular Normal S1, Normal S2, No Murmurs Lungs Clear to Auscultation, Normal Air Movement Abdomen Soft, No Tenderness Neurological Normal Speech, Normal Tone, Sensation Intact, Cranial Nerves 3-12 NL, strength 5/5 in upper extremities, 2/5 in lower extremities (baseline), no pronator drift, cerebellar finger to nose intact Extremities b/l lower 2+ pitting edema up to mid tibia Last 24 Hrs of Labs/Anthony: Laboratory Tests 10/04/17 1426: Urine Opiates Screen < 100, Methadone Screen < 40, Barbiturate Screen < 60, Ur Phencyclidine Scrn < 6.00, Amphetamines Screen < 100, U Benzodiazepines Scrn < 85, Urine Cocaine Screen < 50, Urine Cannabis Screen < 5.00, Urine Color YEL, Urine Clarity CLEAR, Urine pH 6.5, Ur Specific [place] 1.010, Urine Protein NEG, Urine Ketones NEG, Urine Nitrite NEG, Urine Bilirubin NEG, Urine Urobilinogen 0.2, Ur Leukocyte Esterase TRACE H, Ur Microscopic SEDIMENT EXAMINED, Urine RBC RARE, Urine WBC RARE, Urine Hemoglobin TRACE-INTACT H, Urine Glucose NEG 10/04/17 1332: Anion Gap 10, Estimated GFR > 60, BUN/Creatinine Ratio 23.6, Glucose 207 H, Lactic Acid 1.6, Calcium 9.6, Total Bilirubin 0.8, AST 16 L, ALT 22, Alkaline Phosphatase 63, Troponin I < 0.01, Total Protein 6.2 L, Albumin 3.6, Globulin 2.6, Albumin/Globulin Ratio 1.4, Triglycerides 116, Cholesterol 134, LDL Cholesterol, Calc 59 L, HDL Cholesterol 52, Cholesterol/HDL Ratio 3, PT 11.2, INR 1.03, APTT 28, CBC w Diff NO MAN DIFF REQ, RBC 3.91 L, MCV 95.9 H, MCH 32.5 H, MCHC 33.9, RDW 14.6 H, MPV 8.7, Gran % 71.5, Lymphocytes % 17.0 L, Monocytes % 8.6, Eosinophils % 2.5, Basophils % 0.4, Absolute Granulocytes 5.1, Absolute Lymphocytes 1.2, Absolute Monocytes 0.6, Absolute Eosinophils 0.2, Absolute Basophils 0 Microbiology 10/04 1425 URINE ROUT: Urine Culture - RECD Assessment/Plan Assessment: 82 yo M with PMH of TIA, hyperlipidemia, GBS, CAD s/p CABG, urinary incontinence (on straight cath), recurrent UTI on prophylaxis with Keflex was brought to the ED by family members for evaluation of confusion. Assessment: 1. Confusion/ Slurred speech 2. ? TIA 3. History of GBS 4. History of Urinary incontinence and UTI Plan: * Admit patient to telemetry for monitoring of arrhythmias. * He passed his bedside swallow evaluation. * Echocardiogram for LVEF and exclude PFO thrombus * Carotid U/S - to assess hemodynamically significant stenosis * Lipid panel * Start Atorvastatin 40mg daily. * Neurochecks q2 * Neurology consult * Cardiology consult * PT/OT eval * Swallow eval * MRI if compatabile with the hardware placed in his leg. * Continue Keflex for his chronic UTI * Straight cath protocol q8 (the patient does it q8 at home himself). * Diet: Heart Healthy * DVT Prophylaxis: SC Lovenox * Code: Full Code As Ranked By This Provider Problem List: 1. Confusion Core Measures/Misc (01/27) Acute Coronary Syndrome ACS Diagnosis: No Congestive Heart Failure Congestive Heart Failure Diagnosis No Cerebrovascular Accident CVA/TIA Diagnosis: Yes NIH Stroke Scale: Total 6 Date Last Known Well: 10/04/17 Time Last Known Well: 1100 Symptom Start Date: 10/04/17 Symptom Start Time: 1100 Reason tPA not ordered Medical Contraindication Swallow Evaluation Pass Current/Past Hx AFib/AFlutter No Comment pt has chronic LE weakness VTE (View Protocol) VTE Risk Factors Age>40 No Mechanical VTE Prophylaxis d/t N/A MechProphylax Ordered No VTE Pharm Prophylaxis d/t NA PharmProphylax ordered Sepsis (View protocol) Sepsis Present: No If YES complete Sepsis Event Note If YES complete Sepsis Event Note Ata Singleton MD 10/04/17 1610: Core Measures/Misc (01/27) Sepsis (View protocol) If YES complete Sepsis Event Note If YES complete Sepsis Event Note Attending MD Review Statement Attending Statement Attending MD Statement: examined this patient, discuss w/resident/PA/LINE SERVICER, agreed w/resident/PA/LINE SERVICER, reviewed EMR data (avail) Attending Assessment/Plan: 82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 Yesterday had a headache and some lightheadedness. Today was unable to recognize family members and had slurred speech for a matter of minutes. He symptoms resolved and he is currently asymptomatic. Denies any other neurological symptoms. Currently on Aggranox. CT head negative. 1. TIA 2. Slurred speech Plan - Admit to telemetry - Neurology consult for recommendations on anti-platelet medications - Cardiology consult - Discontinue Sivastatin, start high dose Atorvastatin - Carotid doppler - Echocardiogram - Will try to obtain results about frederick in patient's leg and whether it is MRI compatible - Continue remaining home medications - DVT PPx Scottie Elias 10/04/17 2301: Core Measures/Misc (01/27) Sepsis (View protocol) If YES complete Sepsis Event Note If YES complete Sepsis Event Note Resident Review Statement Resident Statement: examined this patient, discussed with project intern, agreed with project intern, discussed with family, reviewed images, amended to note Other Findings: 82 year old gentleman with PMH GBS with resultant b/l leg weakness, neurogenic bladder, recurrent UTI on abx ppx, CAD s/p CABGx5 who presented with an episode of slurred speech and AMS for few minutes, presentation suspicious for TIA. To be monitored on telemetry, Neuro checks q3, continue Aggrenox pending Neuro evaluation, statin, doppler carotid. Obtain Echo. MRI if possible. Full code Lovenox Passed bedside swallow eval - Heart healthy diet.
--- NOTE | 2017-10-04 16:13 | Admission Certification ---
Admission Certification Certification Statement - As attending physician, I certify that at the time of - admission, based on clinical presentation, severity of - symptoms, need for further diagnostic testing and - therapeutic interventions, and risk of adverse outcomes - without in-hospital treatment, in my clinical assessment, - this patient requires an acute hospital stay for a minimum - of two nights or longer. I have also considered psychsocial - factors such as support system, advanced age, financial - issues, cognitive issues, and failed out-patient treatments, - past re-admission history, safety of patient, and lack of - compliance as applicable. Specific rationale supporting this admission is: TIA, possible CVA, will require extensive workup
[2017-10-04 18:07] VITALS: BP 136/90
--- NOTE | 2017-10-04 18:11 | ULTRASOUND REPORT ---
EXAMINATION: DUPLEX BILATERAL CAROTID ULTRASOUND CLINICAL INFORMATION: TIA. Check for stenosis. COMPARISON: 12/27/2009 TECHNIQUE: Duplex bilateral carotid US was performed using real-time ultrasound and Doppler techniques (integrating B-mode 2D vascular images, Doppler spectral analysis and color flow Doppler imaging). These techniques were utilized to interrogate the extracranial carotid and vertebral arteries bilaterally. The degree of stenosis is based off criteria similar to NASCET. FINDINGS: 1. On the right: Plaque is present at the carotid bifurcation but velocity measurements are normal and do not suggest a stenosis of greater than 50% diameter reduction in the right ICA. The vertebral artery is patent demonstrating antegrade flow. 2. On the left: Plaque is present at the carotid bifurcation but velocity measurements are normal and do not suggest a stenosis of greater than 50% diameter reduction in the left ICA. The vertebral artery is patent demonstrating antegrade flow. The external carotid arteries appear unremarkable. IMPRESSION: Plaque is present in the internal carotid arteries but velocity measurements are normal and there is no evidence to suggest a hemodynamically significant stenosis of greater than 50% diameter reduction.
[2017-10-04 22:00] VITALS: BP 134/88
--- NOTE | 2017-10-05 03:56 | PN- Housestaff ---
See Addendum Subjective Follow-up For: 1. TIA 2. Slurred speech Tele-Events Since Last Visit: Sinus rhythm, rate 60-85. Subjective: Offers no complaints. Slept well last night. No further episodes of confusion, weakness or numbness tingling. No episodes of loose bowel movements. Feels well. No fevers or chills. Review of Systems Constitutional: Reports: see HPI. Objective Last 24 Hrs of Vital Signs/I&O Vital Signs Date Time Temp Pulse Resp B/P B/P Pulse O2 O2 Flow FiO2 Mean Ox Delivery Rate 10/04 2200 98.1 90 17 134/88 97 10/04 1807 98.4 90 18 136/90 96 10/04 1659 98.4 76 18 136/84 98 Room Air 10/04 1432 97.9 88 16 140/80 99 Room Air 10/04 1335 98 Room Air 10/04 1330 96.0 89 18 134/72 95 Room Air Intake & Output 10/05 0800 10/05 0000 10/04 1600 Intake Total 80 Output Total 800 175 Balance -720 -175 Intake, Oral 80 Output, Urine 800 175 Patient 203 lb Weight Weight Bed scale Measurement Method Physical Exam General Appearance: Alert, Oriented X3, Cooperative HEENT: Atraumatic, PERRLA, EOMI Cardiovascular: Regular Rate, Normal S1, Normal S2 Lungs: Clear to Auscultation, Normal Air Movement Abdomen: Normal Bowel Sounds, Soft, No Tenderness Neurological: Normal Speech Extremities: No Clubbing, No Cyanosis, No Edema Current Medications: Current Medications Sig/Yeimi Start time Last Medication Dose Route Stop Time Status Admin Atorvastatin Calcium 40 MG 1700 10/04 1700 AC 10/04 PO 172 Cephalexin 250 MG AT BEDTIME 10/04 2100 AC 10/04 PO 1958 Dipyridamole/Aspirin 1 CAP BID 10/04 2100 AC 10/04 PO 1958 Docusate Sodium 100 MG AT BEDTIME NEED.. 10/04 161 AC PO Enoxaparin Sodium 40 MG DAILY 10/05 0900 AC SC Multivitamins 0 .STK-MED ONE 10/04 1711 DC PO Multivitamins 1 TAB DAILY 10/04 1612 AC 10/04 Therapeutic PO 1720 Sodium Chloride 1,000 ML .[id number] 10/04 1630 AC 10/04 IV 10/05 0549 1654 Last 24 Hrs of Lab/Anthony Results Last 24 Hrs of Labs/Mics: Laboratory Tests 10/04/17 1426: Urine Opiates Screen < 100, Methadone Screen < 40, Barbiturate Screen < 60, Ur Phencyclidine Scrn < 6.00, Amphetamines Screen < 100, U Benzodiazepines Scrn < 85, Urine Cocaine Screen < 50, Urine Cannabis Screen < 5.00, Urine Color YEL, Urine Clarity CLEAR, Urine pH 6.5, Ur Specific [place] 1.010, Urine Protein NEG, Urine Ketones NEG, Urine Nitrite NEG, Urine Bilirubin NEG, Urine Urobilinogen 0.2, Ur Leukocyte Esterase TRACE H, Ur Microscopic SEDIMENT EXAMINED, Urine RBC RARE, Urine WBC RARE, Urine Hemoglobin TRACE-INTACT H, Urine Glucose NEG 10/04/17 1332: Anion Gap 10, Estimated GFR > 60, BUN/Creatinine Ratio 23.6, Glucose 207 H, Lactic Acid 1.6, Calcium 9.6, Total Bilirubin 0.8, AST 16 L, ALT 22, Alkaline Phosphatase 63, Troponin I < 0.01, Total Protein 6.2 L, Albumin 3.6, Globulin 2.6, Albumin/Globulin Ratio 1.4, Triglycerides 116, Cholesterol 134, LDL Cholesterol, Calc 59 L, HDL Cholesterol 52, Cholesterol/HDL Ratio 3, PT 11.2, INR 1.03, APTT 28, CBC w Diff NO MAN DIFF REQ, RBC 3.91 L, MCV 95.9 H, MCH 32.5 H, MCHC 33.9, RDW 14.6 H, MPV 8.7, Gran % 71.5, Lymphocytes % 17.0 L, Monocytes % 8.6, Eosinophils % 2.5, Basophils % 0.4, Absolute Granulocytes 5.1, Absolute Lymphocytes 1.2, Absolute Monocytes 0.6, Absolute Eosinophils 0.2, Absolute Basophils 0 Microbiology 10/04 1425 URINE ROUT: Urine Culture - RECD Assessment/Plan Assessment: 82 year old gentleman with PMH GBS with resultant b/l leg weakness, neurogenic bladder, recurrent UTI on abx ppx, CAD s/p CABGx5 who presented with an episode of slurred speech and AMS for few minutes, presentation suspicious for TIA. 1. TIA. Continue telemetry. Await neurology recommendations regarding anti- thrombotic. Continue Aggrenox until then. Await echocardiogram and carotid Dopplers. Continue atorvastatin. Passed bedside swallow eval - continue diet. PT/OT eval. MRI, if able. 2. Chronic UTI. Continue prophylactic antibiotics. 3. Continue other home meds. Labs pending. Full code. Lovenox for DVT prophylaxis. Heart healthy diet. Problem List: 1. TIA (transient ischemic attack) Pain Ratin Pain Location: None Pain Goal: Remain pain free Pain Plan: PRN Tomorrow's Labs & Rationales: CBC BEP
[2017-10-05 06:53] VITALS: BP 130/60
[2017-10-05 08:35] LABS: ABSOLUTE BASOPHIL COUNT 0 /CUMM (0.0-0.2); ABSOLUTE EOSINOPHIL COUNT 0.3 /CUMM (0.0-0.7); ABSOLUTE GRANULOCYTE CT 5.6 /CUMM (1.4-6.5); ABSOLUTE LYMPH COUNT 1.2 /CUMM (1.2-3.4); ABSOLUTE MONOCYTE COUNT 0.6 /CUMM (0.10-0.60); BASOPHIL % 0.4 % (0.0-2.0); EOSINOPHIL % 3.6 % (0-5); GRANULOCYTE % 72.7 % (42.2-75.2); HEMATOCRIT 40.2 % (42-52); MEAN CORPUSCULAR HGB 32.9 PG (27.0-31.0); MEAN CORPUSCULAR HGB CONC 34.1 G/DL (33.0-37.0); MEAN CORPUSCULAR VOLUME 96.4 FL (80.0-94.0); MEAN PLATELET VOLUME 9.1 FL (7.4-10.4); PLATELET COUNT 286 /CUMM (130-400); RBC DISTRIBUTION WIDTH 14.3 % (11.5-14.5); RED BLOOD CELL CT 4.17 /CUMM (4.70-6.10); WHITE BLOOD CELL COUNT 7.7 /CUMM (4.8-10.8)
--- NOTE | 2017-10-05 10:49 | Cons- Cardiology ---
General Information and HPI Consulting Request Date of Consult: 10/05/17 Requested By: Ata Singleton MD History of Present Illness: Jovany is an 82 year old male with history of coronary artery disease s/p CABG, dyslipidemia, multiple prior TIA's and Guillian Newton Hamilton syndrome with lower extremity weakness. He has a neurogenic bladder and straight catheterizes. At his baseline, he is described as having good and bad days in regard to his mental status. Yesterday, he was noted to be confused by his visiting nurse who also discovered a labile blood pressure with both hypertension and episodes of hypotension. He denies chest discomfort, shortness of breath or palpitations. He did report some lightheadedness. He was also observed to have slurred speech yesterday. It should be noted that the patient also had diarrhea. Allergies/Medications Allergies: Coded Allergies: latex (Intermediate, HIVES AND ITCHY 02/22/17) Home Med List: Bifidobacterium Infantis (Align) 4 MG (1 BILLION CELL) CAPSULE 1 CAP PO DAILY Probiotic (Reported) Calcium Carbonate/Vitamin D3 (Os-Mikhail 500+D3 Caplet) 500 MG-200 TABLET 1 TAB PO BID Vitamin Support (Reported) Cephalexin 250 MG CAPSULE 1 CAP PO AT BEDTIME UTI PROPHYLACTIC (Reported) Dipyridamole W/ Aspirin (Aggrenox 25 MG-200 MG Capsule) 25 MG-200 MG CPMP.12HR 1 CAP PO BID BLOOD THINNER (Reported) Docusate Sodium (Colace) 100 MG CAPSULE 1 CAP PO QPMP PRN Constipation ( Reported) Multiple Vitamin (Multivitamins) 1 EACH TABLET 1 TAB PO DAILY VITAMIN SUPPORT (Reported) Sennosides (Senna) 8.6 MG TABLET 1 TAB PO QPM PRN Constipation (Reported) Simvastatin (Simvastatin*) 40 MG TABLET 1 TAB PO QPM HEART HEALTH (Reported) Review of Systems Review of Systems: diarrhea Past History Travel History Traveled to [place] past 21 day No Medical History Blood Transfusion Hx: Yes Neurological: GBS EENT: NONE Cardiovascular: hyperlipidemia, myocardial infarction Respiratory: NONE Gastrointestinal: constipation Hepatic: NONE Renal: neurogenic bladder, urinary incontinence, UTI Musculoskeletal: NONE Psychiatric: NONE Endocrine: NONE Blood Disorders: NONE Cancer(s): NONE 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 Home Who Do You Live With? spouse Services at Home: Nursing Smoking Status: Former Smoker Exam & Diagnostic Data Vital Signs and I&O Vital Signs Date Time Temp Pulse Resp B/P B/P Pulse O2 O2 Flow FiO2 Mean Ox Delivery Rate 10/05 0653 97.7 87 18 130/60 94 Room Air 10/04 2200 98.1 90 17 134/88 97 10/04 1807 98.4 90 18 136/90 96 10/04 1659 98.4 76 18 136/84 98 Room Air 10/04 1432 97.9 88 16 140/80 99 Room Air 10/04 1335 98 Room Air 10/04 1330 96.0 89 18 134/72 95 Room Air Intake & Output 10/05 1600 10/05 0800 10/05 0000 10/04 1600 10/04 0810/04 0000 Intake Total 80 Output Total 1000 800 175 Balance -1000 -720 -175 Intake, Oral 80 Output, Urine 1000 800 175 Patient 203 lb Weight Weight Bed scale Measurement Method Physical Exam: General: WD/WN male in NAD; awake and responsive HEENT: NC/AT, PERRl, EOMI Neck: no JVD, no carotid bruit Heart: RRR with 2/6 systolic murmur with sternal incision Lungs: clear bilaterally Abdomen: soft, NT, +ve bowel sounds Extremities: 2+ leg edema Assessment/Plan Assessment/Plan * This patient has no evidence of myocardial ischemia but does have some leg edema consistent with mild decompensated right heart failure. Begin Lasix 20mg daily. * Blood pressure now appears well controlled on his current drug regimen. * TIA. Continue a platelet inhibitor and aspirin. * Repeat an echocardiogram. Consult Acknowledgment - Thank you for your consult request.
--- NOTE | 2017-10-05 11:05 | Cons- Neurology ---
General Information and HPI Consulting Request Date of Consult: 10/05/17 Requested By: Ata Singleton MD Reason for Consult: Confusional episode with slurred speech Source of Information: patient, staff Exam Limitations: no limitations History of Present Illness: This is a very pleasant 82-year-old man who was brought to the hospital after being noted to have developed confusion and disorientation and was slurring his speech. There is a blood workup and urinalysis did not reveal any abnormalities. He was therefore admitted with concern of a possible ischemic event. Today in the morning he is back to baseline and feels that his speech is fine. 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 Outside of that he denies any headache dizziness any other focal symptoms or any trouble swallowing. At this point in time he is back to normal. Arrival his blood pressure was 130/60. Allergies/Medications Allergies: Coded Allergies: latex (Intermediate, HIVES AND ITCHY 02/22/17) Home Med List: Bifidobacterium Infantis (Align) 4 MG (1 BILLION CELL) CAPSULE 1 CAP PO DAILY Probiotic (Reported) Calcium Carbonate/Vitamin D3 (Os-Mikhail 500+D3 Caplet) 500 MG-200 TABLET 1 TAB PO BID Vitamin Support (Reported) Cephalexin 250 MG CAPSULE 1 CAP PO AT BEDTIME UTI PROPHYLACTIC (Reported) Dipyridamole W/ Aspirin (Aggrenox 25 MG-200 MG Capsule) 25 MG-200 MG CPMP.12HR 1 CAP PO BID BLOOD THINNER (Reported) Docusate Sodium (Colace) 100 MG CAPSULE 1 CAP PO QPMP PRN Constipation ( Reported) Multiple Vitamin (Multivitamins) 1 EACH TABLET 1 TAB PO DAILY VITAMIN SUPPORT (Reported) Sennosides (Senna) 8.6 MG TABLET 1 TAB PO QPM PRN Constipation (Reported) Simvastatin (Simvastatin*) 40 MG TABLET 1 TAB PO QPM HEART HEALTH (Reported) Current Medications: Current Medications Sig/Yeimi Start time Last Medication Dose Route Stop Time Status Admin Atorvastatin Calcium 40 MG 1700 10/04 1700 AC 10/04 PO 1720 Cephalexin 250 MG AT BEDTIME 10/04 2100 AC 10/04 PO 1959 Dipyridamole/Aspirin 1 CAP BID 10/04 2100 AC 10/05 PO 0812 Docusate Sodium 100 MG AT BEDTIME NEED.. 10/04 1615 AC PO Enoxaparin Sodium 40 MG DAILY 10/05 0900 AC 10/05 SC 0812 Multivitamins 0 .STK-MED ONE 10/04 1711 DC PO Multivitamins 1 TAB DAILY 10/04 1612 AC 10/05 Therapeutic PO 0813 Sodium Chloride 1,000 ML .[id number] 10/04 1630 DC 10/04 IV 10/05 0549 1654 Review of Systems Review of Systems: As per HPI otherwise negative to the 10 point complete review of system. 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 Home Who Do You Live With? spouse Services at Home: Nursing Smoking Status: Former Smoker Exam & Diagnostic Data Vital Signs and I&O Vital Signs Date Time Temp Pulse Resp B/P B/P Pulse O2 O2 Flow FiO2 Mean Ox Delivery Rate 10/05 0653 97.7 87 18 130/60 94 Room Air 10/04 2200 98.1 90 17 134/88 97 10/04 1807 98.4 90 18 136/90 96 10/04 1659 98.4 76 18 136/84 98 Room Air 10/04 1432 97.9 88 16 140/80 99 Room Air 10/04 1335 98 Room Air 10/04 1330 96.0 89 18 134/72 95 Room Air Intake & Output 10/05 1600 10/05 0800 10/05 0000 Intake Total 80 Output Total 1000 800 Balance -1000 -720 Intake, Oral 80 Output, Urine 1000 800 Patient 203 lb Weight Weight Bed scale Measurement Method Physical Exam: General: The patient is in no distress. Pleasant and cooperative. MSE: Alert and oriented 3. Good attention and concentration. Good short-term memory and fund of knowledge reflected through our conversation. Language is fluent with good comprehension and repetition. Cardiovascular: S1 and S2 are normal, regular rate and rhythm, and normal pedal pulses. Vision: Visual graves are intact. Neurological: Extra ocular movements intact, EMILY, face is symmetric, tongue midline, uvula raises equally in the midline, V1-V3 sensation to touch is intact and equal bilaterallty, sternocleidomastoid and trapezius are strong on both sides, muscles of mastication are strong. No dysarthria noted. Motor exam reveals mild left pronator drift and weakness in the legs. Has substantial 3 out of 5 proximal leg weakness bilaterally. Otherwise strength is 5-5 throughout the distribution distally and proximally. Sensory exam revealed deficits to touch, temperature, vibration and proprioception up to the knees on both sides. Reflexes are attenuated and undetectable in the legs. Cerebellar exam does not reveal any dysmetria. Rapid alternating movements are intact bilaterally. Gait was deferred as the patient does not walk independently. He was not noted to have slurred speech although speech is somewhat hesitant at times. Last 48 Hours of Lab Results: Laboratory Tests 10/05 10/04 0640 1426 Chemistry Sodium (137 - 145 mmol/L) 142 Potassium (3.5 - 5.1 mmol/L) 4.4 Chloride (98 - 107 mmol/L) 106 Carbon Dioxide (22 - 30 mmol/L) 25 Anion Gap (5 - 16) 11 BUN (9 - 20 mg/dL) 21 H Creatinine (0.7 - 1.2 mg/dL) 1.1 Estimated GFR (>60 ml/min) > 60 BUN/Creatinine Ratio (7 - 25 %) 19.1 Troponin I (<0.11 ng/ml) < 0.01 Hematology CBC w Diff NO MAN DIFF REQ WBC (4.8 - 10.8 /CUMM) 7.7 RBC (4.70 - 6.10 /CUMM) 4.17 L Hgb (14.0 - 18.0 G/DL) 13.7 L Hct (42 - 52 %) 40.2 L MCV (80.0 - 94.0 FL) 96.4 H MCH (27.0 - 31.0 PG) 32.9 H MCHC (33.0 - 37.0 G/DL) 34.1 RDW (11.5 - 14.5 %) 14.3 Plt Count (130 - 400 /CUMM) 286 MPV (7.4 - 10.4 FL) 9.1 Gran % (42.2 - 75.2 %) 72.7 Lymphocytes % (20.5 - 51.1 %) 15.3 L Monocytes % (1.7 - 9.3 %) 8.0 Eosinophils % (0 - 5 %) 3.6 Basophils % (0.0 - 2.0 %) 0.4 Absolute Granulocytes (1.4 - 6.5 /CUMM) 5.6 Absolute Lymphocytes (1.2 - 3.4 /CUMM) 1.2 Absolute Monocytes (0.10 - 0.60 /CUMM) 0.6 Absolute Eosinophils (0.0 - 0.7 /CUMM) 0.3 Absolute Basophils (0.0 - 0.2 /CUMM) 0 Toxicology Urine Opiates Screen (>2000 NG/ML) < 100 Methadone Screen (>300 NG/ML) < 40 Barbiturate Screen (>200 NG/ML) < 60 Ur Phencyclidine Scrn (>25 NG/ML) < 6.00 Amphetamines Screen (>1000 NG/ML) < 100 U Benzodiazepines Scrn (>200 NG/ML) < 85 Urine Cocaine Screen (>300 NG/ML) < 50 Urine Cannabis Screen (>50 NG/ML) < 5.00 Urines Urine Color (YEL,AMB,STR) YEL Urine Clarity (CLEAR) CLEAR Urine pH (5.0 - 8.0) 6.5 Ur Specific Leblanc (1.001 - 1.035) 1.010 Urine Protein (NEG,<30 MG/DL) NEG Urine Ketones (NEG) NEG Urine Nitrite (NEG) NEG Urine Bilirubin (NEG) NEG Urine Urobilinogen (0.1 - 1.0 EU/dl) 0.2 Ur Leukocyte Esterase (NEG) TRACE H Ur Microscopic SEDIMENT EXAMINED Urine RBC (0 - 5 /HPF) RARE Urine WBC (0 - 2 /HPF) RARE Urine Hemoglobin (NEG) TRACE-INTACT H Urine Glucose (N MG/DL) NEG 10/04 1332 Chemistry Sodium (137 - 145 mmol/L) 136 L Potassium (3.5 - 5.1 mmol/L) 4.2 Chloride (98 - 107 mmol/L) 100 Carbon Dioxide (22 - 30 mmol/L) 25 Anion Gap (5 - 16) 10 BUN (9 - 20 mg/dL) 26 H Creatinine (0.7 - 1.2 mg/dL) 1.1 Estimated GFR (>60 ml/min) > 60 BUN/Creatinine Ratio (7 - 25 %) 23.6 Glucose (65 - 99 mg/dL) 207 H Lactic Acid (0.7 - 2.1 mmol/L) 1.6 Calcium (8.4 - 10.2 mg/dL) 9.6 Total Bilirubin (0.2 - 1.3 mg/dL) 0.8 AST (17 - 59 U/L) 16 L ALT (21 - 72 U/L) 22 Alkaline Phosphatase (< 127 U/L) 63 Troponin I (<0.11 ng/ml) < 0.01 Total Protein (6.3 - 8.2 g/dL) 6.2 L Albumin (3.5 - 5.0 g/dL) 3.6 Globulin (1.9 - 4.2 gm/dL) 2.6 Albumin/Globulin Ratio (1.1 - 2.2 %) 1.4 Triglycerides (<150 mg/dL) 116 Cholesterol (< 200 MG/DL) 134 LDL Cholesterol, Calc (65 - 129 mg/dL) 59 L HDL Cholesterol (40 - 60 mg/dL) 52 Cholesterol/HDL Ratio (0.00 - 4.88 %) 3 Coagulation PT (9.4 - 12.5 SEC) 11.2 INR (0.90 - 1.17) 1.03 APTT (25 - 37 SEC) 28 Hematology CBC w Diff NO MAN DIFF REQ WBC (4.8 - 10.8 /CUMM) 7.1 RBC (4.70 - 6.10 /CUMM) 3.91 L Hgb (14.0 - 18.0 G/DL) 12.7 L Hct (42 - 52 %) 37.5 L MCV (80.0 - 94.0 FL) 95.9 H MCH (27.0 - 31.0 PG) 32.5 H MCHC (33.0 - 37.0 G/DL) 33.9 RDW (11.5 - 14.5 %) 14.6 H Plt Count (130 - 400 /CUMM) 290 MPV (7.4 - 10.4 FL) 8.7 Gran % (42.2 - 75.2 %) 71.5 Lymphocytes % (20.5 - 51.1 %) 17.0 L Monocytes % (1.7 - 9.3 %) 8.6 Eosinophils % (0 - 5 %) 2.5 Basophils % (0.0 - 2.0 %) 0.4 Absolute Granulocytes (1.4 - 6.5 /CUMM) 5.1 Absolute Lymphocytes (1.2 - 3.4 /CUMM) 1.2 Absolute Monocytes (0.10 - 0.60 /CUMM) 0.6 Absolute Eosinophils (0.0 - 0.7 /CUMM) 0.2 Absolute Basophils (0.0 - 0.2 /CUMM) 0 [facility] IMPRESSION: 1. There is no evidence of a recent intracranial hemorrhage. 2. No acute infarct. 3. Atrophy. Assessment/Plan Assessment: 82-year-old man with a presentation of slight confusion and slurred speech that is now resolved. As could simply be an encephalopathy from an unknown reason. No clear reason was found. TIA would be on the differential here. Recommendations: 1. Agree with statin and Aggrenox. 2. Add lisinopril 10 mg daily. 3. No need for MRI. 4. System by speech therapy. 5. Consider echo. Neurology signing off. Consult Acknowledgment - Thank you for your consult request.
[2017-10-05 15:08] VITALS: BP 138/80
[2017-10-05 22:34] VITALS: BP 140/100
[2017-10-05 22:57] VITALS: BP 142/90
[2017-10-06 07:23] VITALS: BP 140/80
--- NOTE | 2017-10-06 08:20 | PN- Housestaff ---
See Addendum Subjective Follow-up For: Confusion Slurred Speech Tele-Events Since Last Visit: NSR with HR 79-91. No overnight events. Subjective: Patient was seen and examined at bedside. He feels much better today. States he got confused yesterday but its cleare up today. No complaints. Review of Systems Constitutional: Reports: no symptoms. Objective Last 24 Hrs of Vital Signs/I&O Vital Signs Date Time Temp Pulse Resp B/P B/P Pulse O2 O2 Flow FiO2 Mean Ox Delivery Rate 10/06 0723 97.9 90 16 140/80 95 Room Air 10/05 2257 142/90 10/05 2234 97.9 89 16 140/100 96 10/05 1508 97.3 81 20 138/80 96 Intake & Output 10/06 1600 10/06 0800 10/06 0000 Intake Total 120 120 Output Total 400 200 Balance -280 -80 Intake, Oral 120 120 Output, Urine 400 200 Patient 201 lb Weight Physical Exam General Appearance: Alert, Oriented X3, Cooperative, No Acute Distress Skin: No Rashes, No Breakdown Skin Temp/Moisture Exam: Warm/Dry Sepsis Skin Exam (color): Normal for Ethnicity HEENT: Atraumatic Cardiovascular: Normal S1, Normal S2, No Murmurs Lungs: Clear to Auscultation, Normal Air Movement Abdomen: Soft, No Tenderness Neurological: Normal Speech Extremities: 1+ LE edema Last 24 Hrs of Lab/Anthony Results Last 24 Hrs of Labs/Mics: Laboratory Tests 10/06/17 0622: Anion Gap 10, Estimated GFR 53 L, BUN/Creatinine Ratio 21.5, CBC w Diff NO MAN DIFF REQ, RBC 3.91 L, MCV 97.4 H, MCH 32.2 H, MCHC 33.0, RDW 14.8 H, MPV 9.2 , Gran % 77.8 H, Lymphocytes % 12.5 L, Monocytes % 7.3, Eosinophils % 2.0, Basophils % 0.4, Absolute Granulocytes 6.9 H, Absolute Lymphocytes 1.1 L, Absolute Monocytes 0.6, Absolute Eosinophils 0.2, Absolute Basophils 0 Assessment/Plan Assessment: 82 yo M with PMH of TIA, hyperlipidemia, GBS, CAD s/p CABG, urinary incontinence (on straight cath), recurrent UTI on prophylaxis with Keflex was brought to the ED by family members for evaluation of confusion. Assessment: 1. Confusion/ Slurred speech 2. JASE 3. History of GBS 4. History of Urinary incontinence and UTI Plan: * Continue telemetry for now. * Started on Lasix 20mg daily for lower leg edema. * His Cr is elevated this morning. Will need to be monitored. * Echocardiogram - pending * Carotid U/S - no hemodynamically significant stenosis present * Lipid panel - wnl * Continue Atorvastatin 40mg and Aggrenox. * Continue Lisnipril 10mg. * Neurochecks q4 * PT/OT eval * No need for MRI * Continue Keflex for his chronic UTI * Straight cath protocol q8 (the patient does it q8 at home himself). * Diet: Heart Healthy * DVT Prophylaxis: SC Lovenox * Code: Full Code Problem List: 1. Confusion Pain Ratin Pain Location: none Pain Goal: Remain pain free Pain Plan: none Tomorrow's Labs & Rationales: CBC, BEP
[2017-10-06 08:23] LABS: ABSOLUTE BASOPHIL COUNT 0 /CUMM (0.0-0.2); ABSOLUTE EOSINOPHIL COUNT 0.2 /CUMM (0.0-0.7); ABSOLUTE GRANULOCYTE CT 6.9 /CUMM (1.4-6.5); ABSOLUTE LYMPH COUNT 1.1 /CUMM (1.2-3.4); ABSOLUTE MONOCYTE COUNT 0.6 /CUMM (0.10-0.60); BASOPHIL % 0.4 % (0.0-2.0); GRANULOCYTE % 77.8 % (42.2-75.2); HEMATOCRIT 38.1 % (42-52); MEAN CORPUSCULAR HGB 32.2 PG (27.0-31.0); MEAN CORPUSCULAR VOLUME 97.4 FL (80.0-94.0); MEAN PLATELET VOLUME 9.2 FL (7.4-10.4); PLATELET COUNT 255 /CUMM (130-400); RBC DISTRIBUTION WIDTH 14.8 % (11.5-14.5); RED BLOOD CELL CT 3.91 /CUMM (4.70-6.10); WHITE BLOOD CELL COUNT 8.9 /CUMM (4.8-10.8)
--- NOTE | 2017-10-06 09:15 | Patient Discharge Instructions ---
Discharge Instructions General Discharge Information You were seen/treated for: Confusion Slurred Speech Special Instructions: Please follow up with your PCP within one week of discharge. Please follow up with a high school tutor and neurologist within one week of discharge. Diet Continue normal diet: Yes Activity Full Activity/No Limits: Yes Activity Self Limited: Yes Acute Coronary Syndrome Inclusion Criteria At DC or during hospital stay patient has or had the following: ACS DIAGNOSIS No Discharge Core Measures Meds if any: Prescribed or Continued at Discharge Meds if any: NOT Prescribed or Continued at Discharge Congestive Heart Failure Inclusion Criteria At DC or during hospital stay patient has or had the following: CHF DIAGNOSIS No Discharge Core Measures Meds if any: Prescribed or Continued at Discharge Meds if any: NOT Prescribed or Continued at Discharge Cerebrovascular accident Inclusion Criteria At DC or during hospital stay patient has or had the following: CVA/TIA Diagnosis No Discharge Core Measures Meds if any: Prescribed or Continued at Discharge Meds if any: NOT Prescribed or Continued at Discharge Venous thromboembolism Inclusion Criteria VTE Diagnosis No VTE Type NONE VTE Confirmed by (Test) NONE Discharge Core Measures - Per Current guidelines, there needs to be overlap - treatment for the first 5 days of Warfarin therapy. - If discharged on Warfarin prior to 5 days of - overlap therapy, the patient will need to be - assessed for post discharge needs including - *Post discharge parental anticoagulation - *Warfarin and/or parental anticoagulation education - *Follow up date to check INR post discharge At least 5 days overlap therapy as Inpatient No Meds if any: Prescribed or Continued at Discharge Note: Overlap Therapy is Warfarin and Anticoagulant Meds if any: NOT Prescribed or Continued at Discharge
--- NOTE | 2017-10-06 09:26 | PN- Cardiology ---
Subjective Subjective: * No complaints of chest discomfort or shortness of breath. Leg swelling is improved. * sinus rhythm * creatinine 1.3 Objective Vital Signs and I&Os Vital Signs Date Time Temp Pulse Resp B/P B/P Pulse O2 O2 Flow FiO2 Mean Ox Delivery Rate 10/06 0723 97.9 90 16 140/80 95 Room Air 10/05 2257 142/90 10/05 2234 97.9 89 16 140/100 96 10/05 1508 97.3 81 20 138/80 96 Intake & Output 10/06 0810/06 0000 10/05 1600 10/05 0810/05 0000 Intake Total 120 120 400 80 Output Total 400 049 562 8620 800 Balance -280 -80 -100 -1000 -720 Intake, Oral 120 120 400 80 Output, Urine 400 942 453 8495 800 Patient 201 lb 203 lb Weight Weight Bed scale Measurement Method Physical Exam: General: WD/WN male in NAD; awake and responsive HEENT: NC/AT, PERRl, EOMI Neck: no JVD, no carotid bruit Heart: RRR with 2/6 systolic murmur with sternal incision Lungs: clear bilaterally Abdomen: soft, NT, +ve bowel sounds Extremities: 1+ leg edema bilaterally Assessment/Plan Assessment/Plan * This patient has no evidence of myocardial ischemia but does have some leg edema consistent with mild decompensated right heart failure. Continue Lasix 20mg daily with continued monitoring of his creatinine which is slightly rising. * Blood pressure now appears well controlled on his current drug regimen. * TIA. Continue a platelet inhibitor and aspirin. Continue telemetry? Yes
--- NOTE | 2017-10-06 13:17 | ECHOCARDIOGRAM REPORT ---
HARDEEP TOMÁS Age: 82 : 1935 Gender: M Exam Date: 10/05/2017 11:37 Exam Location: 1 [address] Ht (in): 72 Wt (lb): 195 BSA: 2.13 BP: 136 / 84 Ordering Physician: Scottie Elias MD Referring Physician: Scottie Elias MD Technologist: Debbie Galeano [facility] Room Number: 180-1 Indications: Rhythm: Technical Quality: Poor FINDINGS Left Ventricle Normal global left ventricular size, wall thickness, systolic function with no obvious regional wall motion abnormalities. Normal left ventricular ejection fraction visually estimated at >55%. Right Ventricle Normal right ventricular size and function. Right Atrium Normal right atrial size. Left Atrium Normal left atrial size. Mitral Valve Mitral valve thickened. Trace mitral regurgitation. Aortic Valve Diffuse thickening (sclerosis) of the aortic valve cusps without reduced excursion. Mild aortic regurgitation. No aortic stenosis. Tricuspid Valve Tricuspid valve not well visualized, grossly normal. Trace tricuspid regurgitation. No evidence of pulmonary hypertension. Pulmonic Valve Pulmonic valve not well visualized, grossly normal. Trace pulmonic regurgitation. Pericardium No pericardial effusion. Great Vessels Normal size aortic root. CONCLUSIONS Normal global left ventricular size, wall thickness, systolic function with no obvious regional wall motion abnormalities. Normal left ventricular ejection fraction visually estimated at > 55%. Trace mitral regurgitation. Mild aortic regurgitation. Trace tricuspid regurgitation. Trace pulmonic regurgitation. Nato Valle M.D. (Electronically Signed) Final Date: 06 Oct 2017 13:16 MEASUREMENTS (Male / Female) Normal Values 2D ECHO LV Diastolic Diameter PLAX 3.2 cm 4.2 - 5.9 / 3.9 - 5.3 cm LV Systolic Diameter PLAX 2.3 cm 2.1 - 4.0 cm LV Fractional Shortening PLAX 28.1 % 25 - 46 % LV Ejection Fraction 2D Teich 55.8 % IVS Diastolic Thickness 0.9 cm LVPW Diastolic Thickness 0.8 cm LV Relative Wall Thickness 0.5 Aortic Root Diameter 3.1 cm LA Systolic Diameter LX 3.1 cm 3.0 - 4.0 / 2.7 - 3.8 cm DOPPLER AV Peak Velocity 140.0 cm/s AV Peak Gradient 7.8 mmHg LVOT Peak Velocity 122.0 cm/s LVOT Peak Gradient 6.0 mmHg Mitral E Point Velocity 68.1 cm/s Mitral A Point Velocity 90.8 cm/s Mitral E to A Ratio 0.8 MV Deceleration Time 243.0 ms TV Peak Velocity 247.2 cm/s PV Peak Velocity 96.4 cm/s PV Peak Gradient 3.7 mmHg LV E' Lateral Velocity 9.5 cm/s Mitral E to LV E' Lateral Ratio 7.2 LV E' Septal Velocity 7.4 cm/s Mitral E to LV E' Septal Ratio 9.2
[2017-10-06 15:00] VITALS: BP 128/64
[2017-10-06 19:42] VITALS: BP 110/60
[2017-10-07 06:40] VITALS: BP 150/86
--- NOTE | 2017-10-07 08:15 | PN- Housestaff ---
Subjective Follow-up For: Confusion Slurred Speech Tele-Events Since Last Visit: NSR with HR 89-94. No overnight events Subjective: Seen and examined. Reports feeling well. does not remember that he was confused yesterday afternoon onwards. States everything from yesterday is 'foggy'. Does remember seeing me in the morning yesterday. Review of Systems Constitutional: Reports: no symptoms. Objective Last 24 Hrs of Vital Signs/I&O Vital Signs Date Time Temp Pulse Resp B/P B/P Pulse O2 O2 Flow FiO2 Mean Ox Delivery Rate 10/07 0640 98.4 91 20 150/86 96 Room Air 10/06 2203 98.0 100 18 95 Room Air 10/06 1942 112 110/60 10/06 1500 97.9 104 18 128/64 95 Room Air Intake & Output 10/07 1600 10/07 0800 10/07 0000 Intake Total 500 Output Total 650 450 Balance -650 50 Intake, IV 250 Intake, Oral 250 Output, Urine 650 450 Patient 196 lb Weight Weight Bed scale Measurement Method Physical Exam General Appearance: Alert, Oriented X3, Cooperative, No Acute Distress Skin: No Rashes, No Breakdown Skin Temp/Moisture Exam: Warm/Dry Sepsis Skin Exam (color): Normal for Ethnicity HEENT: Atraumatic Cardiovascular: Normal S1, Normal S2, MADDI Lungs: Clear to Auscultation, Normal Air Movement Abdomen: Soft, No Tenderness Neurological: Normal Speech Extremities: No Edema Last 24 Hrs of Lab/Anthony Results Last 24 Hrs of Labs/Mics: Laboratory Tests 10/07/17 0715: Anion Gap 9, Estimated GFR 58 L, BUN/Creatinine Ratio 25.0, CBC w Diff NO MAN DIFF REQ, RBC 3.88 L, MCV 97.8 H, MCH 32.3 H, MCHC 33.0, RDW 14.8 H, MPV 9.4 , Gran % 65.5, Lymphocytes % 20.6, Monocytes % 9.9 H, Eosinophils % 3.6, Basophils % 0.4, Absolute Granulocytes 4.4, Absolute Lymphocytes 1.4, Absolute Monocytes 0.7 H, Absolute Eosinophils 0.2, Absolute Basophils 0 10/06/17 2030: Troponin I < 0.01, D-Dimer High Sensitivty 513 H Assessment/Plan Assessment: 82 yo M with PMH of TIA, hyperlipidemia, GBS, CAD s/p CABG, urinary incontinence (on straight cath), recurrent UTI on prophylaxis with Keflex was brought to the ED by family members for evaluation of confusion. Assessment: 1. Confusion/ Slurred speech 2. JASE 3. History of GBS 4. History of Urinary incontinence and UTI Plan: * Continue on Lasix 20mg daily for lower leg edema. * His Cr has trended down today. * He was tachycardic overnight which resolved with a bolus of 250cc NS. Encourage PO water intake especially while on Lasix. * Echocardiogram - pending * ABG today. If alkalotic, will pursue CTA. If tests are negative, can be discharged later today. * Carotid U/S - no hemodynamically significant stenosis present * Lipid panel - wnl * Continue Atorvastatin 40mg and Aggrenox. * Continue Lisnipril 10mg. * PT/OT eval * No need for MRI * Continue Keflex for his chronic UTI * Straight cath protocol q8 (the patient does it q8 at home himself). * Diet: Heart Healthy * DVT Prophylaxis: SC Lovenox * Code: Full Code Problem List: 1. Confusion Pain Ratin Pain Location: none Pain Goal: Remain pain free Pain Plan: none Tomorrow's Labs & Rationales: CBC, BEP
[2017-10-07 08:37] LABS: ABSOLUTE BASOPHIL COUNT 0 /CUMM (0.0-0.2); ABSOLUTE EOSINOPHIL COUNT 0.2 /CUMM (0.0-0.7); ABSOLUTE GRANULOCYTE CT 4.4 /CUMM (1.4-6.5); ABSOLUTE LYMPH COUNT 1.4 /CUMM (1.2-3.4); ABSOLUTE MONOCYTE COUNT 0.7 /CUMM (0.10-0.60); BASOPHIL % 0.4 % (0.0-2.0); EOSINOPHIL % 3.6 % (0-5); GRANULOCYTE % 65.5 % (42.2-75.2); HEMATOCRIT 37.9 % (42-52); MEAN CORPUSCULAR HGB 32.3 PG (27.0-31.0); MEAN CORPUSCULAR VOLUME 97.8 FL (80.0-94.0); MEAN PLATELET VOLUME 9.4 FL (7.4-10.4); PLATELET COUNT 249 /CUMM (130-400); RBC DISTRIBUTION WIDTH 14.8 % (11.5-14.5); RED BLOOD CELL CT 3.88 /CUMM (4.70-6.10); WHITE BLOOD CELL COUNT 6.7 /CUMM (4.8-10.8)
--- NOTE | 2017-10-07 10:35 | PN- Cardiology ---
Subjective Subjective: * No chest discomfort, shortness of breath, lightheadedness or palpitations. * Mild tachycardia noted yesterday. * Increased D-dimer yesterday * creatinine 1.2 * leg edema is resolved Objective Vital Signs and I&Os Vital Signs Date Time Temp Pulse Resp B/P B/P Pulse O2 O2 Flow FiO2 Mean Ox Delivery Rate 10/07 0640 98.4 91 20 150/86 96 Room Air 10/06 2203 98.0 100 18 95 Room Air 10/06 1942 112 110/60 10/06 1500 97.9 104 18 128/64 95 Room Air Intake & Output 10/07 1600 10/07 0800 10/07 0000 10/06 1600 10/06 0800 10/06 0000 Intake Total 500 400 120 120 Output Total 650 450 450 400 200 Balance -650 50 -50 -280 -80 Intake, IV 250 Intake, Oral 250 400 120 120 Output, Urine 650 450 450 400 200 Patient 196 lb 201 lb Weight Weight Bed scale Measurement Method Physical Exam: General: WD/WN male in NAD; awake and responsive HEENT: NC/AT, PERRl, EOMI Neck: no JVD, no carotid bruit Heart: RRR with 2/6 systolic murmur with sternal incision Lungs: clear bilaterally Abdomen: soft, NT, +ve bowel sounds Extremities: no leg edema Assessment/Plan Assessment/Plan * This patient has no evidence of myocardial ischemia but did have some leg edema consistent with mild decompensated right heart failure. This has improved with Lasix. Continue Lasix 20mg PO daily. * Blood pressure is for the most part controlled on his current drug regimen although this morning's pressure is in the 150 systolic range. Will follow on his current drug regimen. * TIA. Continue a platelet inhibitor and aspirin. * At present, this patient has a normal heart rate but was tachycardic yesterday. He has no shortness of breath but is a poor historian with bad memory. He does have an elevated D-dimer and is sedentary. Obtain an ABG and if abnormal with decreased pO2 and respiratory alkylosis would obtain a CT angiogram to assess for a PE. * If no evidence of a PE then this patient is stable for discharge from a cardiac standpoin with follow up in the office in one week. Continue telemetry? Yes
--- NOTE | 2017-10-07 10:57 | Discharge Summary ---
Visit Information Visit Dates Admission Date: 10/04/17 Discharge Date: 10/07/17 Hospital Course Course Attending Physician: Ata Singleton MD Primary Care Physician: Mirta MARIE,Estiven Lopez Hospital Course: Mr Pardo is a 82 yo gentleman with a PMH of TIA, hyperlipidemia, GBS, CAD s/p CABG, urinary incontinence (on straight cath) and recurrent UTI on prophylaxis with Keflex who was brought to the ED by family members with concerns of confusion and slurred speech. At the time of admisison, his slurred speech and confusion had resolved. Given his history TIA was a differential. He was admitted to the telemetry floor for monitoring of heart rate and arrhythmias. His carotid U/S showed no hemodynamically significant stenosis. During his stay he had waxing and waning spells of confusion, starting in the afternoon and subsiding by next morning. He was evaluated by Neurology and felt that this was likely an encephalopathy. He would require further evaluation with a Neurologist as an outpatient on which the family has been educated on. He had some mild leg edema. He was evaluated by cardiology and felt this to be consistent with mild decompensated right heart failure. He was started on a low dose of Lasix. The patient and the family were instructed on how the patient must maintain a good oral hydration while he is on Lasix. An echocardiogram was performed which showed normal LVEF with no obvious regional wall motion abnormalities. He was discharged in stable disposition. Allergies: Coded Allergies: latex (Intermediate, HIVES AND ITCHY 02/22/17) Significant Procedures: SERVICE DATE: 10/04/17-161 EXAM TYPE: CARD - ECHOCARDIOGRAM FINDINGS Left Ventricle Normal global left ventricular size, wall thickness, systolic function with no obvious regional wall motion abnormalities. Normal left ventricular ejection fraction visually estimated at >55%. Right Ventricle Normal right ventricular size and function. Right Atrium Normal right atrial size. Left Atrium Normal left atrial size. Mitral Valve Mitral valve thickened. Trace mitral regurgitation. Aortic Valve Diffuse thickening (sclerosis) of the aortic valve cusps without reduced excursion. Mild aortic regurgitation. No aortic stenosis. Tricuspid Valve Tricuspid valve not well visualized, grossly normal. Trace tricuspid regurgitation. No evidence of pulmonary hypertension. Pulmonic Valve Pulmonic valve not well visualized, grossly normal. Trace pulmonic regurgitation. Pericardium No pericardial effusion. Great Vessels Normal size aortic root. CONCLUSIONS Normal global left ventricular size, wall thickness, systolic function with no obvious regional wall motion abnormalities. Normal left ventricular ejection fraction visually estimated at > 55%. Trace mitral regurgitation. Mild aortic regurgitation. Trace tricuspid regurgitation. Trace pulmonic regurgitation. SERVICE DATE: 10/04/171335 EXAM TYPE: CAT - CT HEAD WO IV CONTRAST FINDINGS: There is no evidence of a recent intracranial hemorrhage or extra-axial collection. The midline structures are nondisplaced. There is unchanged prominence of the ventricles, cisterns and sulci. There is no evidence of an intra-axial mass. There are no suspicious focal areas of abnormal brain attenuation. The bruce-white interface is within normal limits. There is no evidence of acute territorial cortical infarct. There is extensive patchy subcortical, deep and periventricular white matter low-attenuation similar to the previous study. There is partial opacification the right side of the sphenoid sinus. IMPRESSION: 1. There is no evidence of a recent intracranial hemorrhage. 2. No acute infarct. 3. Atrophy. Extensive nonspecific white matter disease possibly related to microangiopathy. This appears similar to the previous study. It would be difficult to detect a small new white matter infarct. SERVICE DATE: 10/04/17- EXAM TYPE: US - [id number] DOPPLER FINDINGS: 1. On the right: Plaque is present at the carotid bifurcation but velocity measurements are normal and do not suggest a stenosis of greater than 50% diameter reduction in the right ICA. The vertebral artery is patent demonstrating antegrade flow. 2. On the left: Plaque is present at the carotid bifurcation but velocity measurements are normal and do not suggest a stenosis of greater than 50% diameter reduction in the left ICA. The vertebral artery is patent demonstrating antegrade flow. The external carotid arteries appear unremarkable. IMPRESSION: Plaque is present in the internal carotid arteries but velocity measurements are normal and there is no evidence to suggest a hemodynamically significant stenosis of greater than 50% diameter reduction. Disposition Summary Disposition Principal Diagnosis: Confusion Slurred Speech Additional Diagnosis: TIA GBS Hyperlipidemia CAD urinary incontinence (on straight cath) Discharge Disposition: home or self care Discharge Instructions General Discharge Information Code Status: Full Code Patient's Diet: Heart Healthy Patient's Activity: As tolerated Follow-Up Instructions/Appts: Please follow up with your PCP within one week of discharge. Please follow up with a drop wire stringer and neurologist within one week of discharge. Medications at Discharge Discharge Medications: Stop taking the following medications: Simvastatin (Simvastatin*) 40 MG TABLET ORAL Every night Qty = 90 Continue taking these medications: Cephalexin (Cephalexin) 250 MG CAPSULE 1 Capsule ORAL AT BEDTIME Qty = 90 Comments: Last Taken: 10/06/17 Time: 8PM Dipyridamole W/ Aspirin (Aggrenox 25 MG-200 MG Capsule) 25 MG-200 MG CPMP.12HR 1 Capsule ORAL TWICE DAILY Qty = 180 Comments: Last Taken: 10/07/17 Time: 8 AM Multiple Vitamin (Multivitamins) 1 EACH TABLET 1 Tablet ORAL DAILY Comments: NOT GIVEN IN HOSPITAL Calcium Carbonate/Vitamin D3 (Os-Mikhail 500+D3 Caplet) 500 MG-200 TABLET 1 Tablet ORAL TWICE DAILY Comments: NOT GIVEN IN HOSPITAL Sennosides (Senna) 8.6 MG TABLET 1 Tablet ORAL Every night as needed for Constipation Comments: NOT GIVEN IN HOSPITAL Docusate Sodium (Colace) 100 MG CAPSULE 1 Capsule ORAL Every night as needed as needed for Constipation Comments: NOT GIVEN IN HOSPITAL Bifidobacterium Infantis (Align) 4 MG (1 BILLION CELL) CAPSULE 1 Capsule ORAL DAILY Comments: NOT GIVEN IN HOSPITAL Start taking the following new medications: Furosemide (Lasix) 20 MG TABLET 1 Tablet ORAL DAILY Qty = 30 No Refills Comments: Last Taken:10/07 Time: 9AM Atorvastatin Calcium (Atorvastatin Calcium) 40 MG TABLET 1 Tablet ORAL DAILY Qty = 30 No Refills Comments: Last Taken: 10/06/17 Time: 5PM Copies To: Estiven Kirby MD 1 Tablet ORAL DAILY Qty = 30 No Refills Comments: Last Taken: 10/06/17 Time: 5PM Copies To: Estiven Kirby MD
[2017-10-07] MEDS ORDERED: ATORVASTATIN CA40 M1 PO (12:20)
[2017-10-07] MEDS ORDERED: LASIX20 M1 PO ×2 (12:20→14:46)
== END 2017-10-07 15:00 | disposition home health service (06) | DRG 948 ==
LOC: ERH 12:58 → ERHI 15:30 → ENRESERV 16:31 → 1NO 17:57 → ENPENDDIS 10-07 12:33 → 1NO 10-07 15:00
PROVIDERS: Internal Medicine; Internal Medicine Hematology & Oncology; Physician Assistant
DX: R41.0 Disorientation, unspecified (principal); I50.813 Acute on chronic right heart failure; Z95.1 Presence of aortocoronary bypass graft; I25.10 Atherosclerotic heart disease of native coronary artery without angina pectoris; R47.81 Slurred speech; E78.5 Hyperlipidemia, unspecified; N31.9 Neuromuscular dysfunction of bladder, unspecified; N39.498 Other specified urinary incontinence; Z87.440 Personal history of urinary (tract) infections
CPT/HCPCS: 1NSP; 36415; 36592; 80307; 81001; 82436; 87086; 93005; 93010; 93306; J1644; J1650; J7040